=== PATIENT | male | born 1960 | race African-American/Black ===

== ENCOUNTER 2017-07-31 20:05 | Inpatient (IN) | payer SELFPAY ==
[~2017-07-31] VITALS: Ht 180.3 cm; Wt 65.5 kg
[~2017-07-31 20:05] MED LIST: CYCL-36 PO; NAPR550 PO; Z.0.NO CURRENT MEDS
[2017-07-31 20:08] VITALS: BP 145/84; PULSE 83; RESP 20; TEMP 97.6; O2SAT 100
[2017-07-31 20:26] VITALS: BP 151/79; PULSE 84; RESP 24; O2SAT 100
[2017-07-31] MEDS ORDERED: ASPIRIN 81 MG CHEW TAB PO ONE (21:00)
[2017-07-31] MEDS ORDERED: NITROGLYCERIN 0.4 MG SL 25 TABS/BTL SL ONE (21:00)
[2017-07-31] MEDS ORDERED: SODIUM CHLORIDE 0.9% FLUSH 10 ML FLUSH IVF PRN (21:00)
--- NOTE | 2017-07-31 21:03 | PD ---
HPI Chief Complaint: Pain: Acute or Chronic Time Seen by Provider: 20:18 Travel History International Travel<30 days: No Contact w/Intl Traveler<30days: No Traveled to known affect area: No History of Present Illness HPI 57 yo m patient presents to the ED with a cc of chest pain. He states that the pain is located in the center of his chest and does not radiate anywhere, it is occasionally associated with SOB, no vision changes, palpitations, sweats, or nausea (although he did vomit once in the past couple of weeks) He also informed me that it is usually associated with his use of crack cocaine, which he smokes multiple times weekly. He stopped using crack earlier this week due to the fact that it was increasing his chest pain. He has had no loss of appetite or changes in bowel patterns. He does have occasional numbness in his extremities. Pain is moderate, center of his chest, heavy pressure-like, context as above. PFSH Past Medical History Autoimmune Disease: Yes (SICKLE CELL TRAIT) Cardiovascular Problems: Yes (HTN) Hypertension: Yes Tetanus Vaccination: < 5 Years Influenza Vaccination: No Past Surgical History Surgical History: No Previous Surgery Social History Alcohol Use: No Tobacco Use: Yes (5 CIGARS/DAY) Substance Use: No (PT DENIES USE SINCE "LAST WEDNESDAY") Allergies-Medications (Allergen,Severity, Reaction): Coded Allergies: No Known Allergies (Verified Allergy, Mild, 07/31/17) Reported Meds & Prescriptions Reported Meds & Active Scripts Active Review of Systems Except as stated in HPI: all other systems reviewed are Neg Physical Exam Narrative GENERAL: patient is laying in bed in no acute distress, holding his upper abdomen/chest SKIN: Warm and dry. HEAD: Atraumatic. Normocephalic. EYES: Pupils equal and round. No scleral icterus. No injection or drainage. ENT: No nasal bleeding or discharge. Mucous membranes pink and moist. NECK: Trachea midline. No JVD. CARDIOVASCULAR: Regular rate and rhythm. no bruits, murmurs or gallops RESPIRATORY: No accessory muscle use. Clear to auscultation. Breath sounds equal bilaterally. pulses 2+ and equal at Radius. no edema GASTROINTESTINAL: Abdomen soft, tender to palpation in the epigastric region. nondistended. Hepatic and splenic margins not palpable. MUSCULOSKELETAL: Extremities without clubbing, cyanosis, or edema. No obvious deformities. NEUROLOGICAL: Awake and alert. No obvious cranial nerve deficits. Motor grossly within normal limits. Five out of 5 muscle strength in the arms and legs. Normal speech. PSYCHIATRIC: Appropriate mood and affect; insight and judgment normal. Data Data Last Documented VS Vital Signs Date Time Temp Pulse Resp B/P (MAP) Pulse Ox O2 Delivery O2 Flow Rate FiO2 07/31/17 21:12 88 16 145/81 (102) 100 Room Air 07/31/17 20:08 97.6 Orders Orders Electrocardiogram (07/31/17 20:53) Ckmb (Isoenzyme) Profile (07/31/17 20:53) Complete Blood Count With Diff (07/31/17 20:53) Comprehensive Metabolic Panel (07/31/17 20:53) Magnesium (Mg) (07/31/17 20:53) Prothrombin Time / Inr (Pt) (07/31/17 20:53) Act Partial Throm Time (Ptt) (07/31/17 20:53) Troponin I (07/31/17 20:53) Chest, Single Ap (07/31/17 20:53) Ecg Monitoring (07/31/17 20:53) Iv Access Insert/Monitor (07/31/17 20:53) Oximetry (07/31/17 20:53) Oxygen Administration (07/31/17 20:53) Aspirin Chew (Aspirin Chew) (07/31/17 21:00) Sodium Chloride 0.9% Flush (Ns Flush) (07/31/17 21:00) Nitroglycerin Sl (Nitrostat Sl) (07/31/17 21:00) Lipase (07/31/17 20:53) CKMB (07/31/17 20:50) CKMB% (07/31/17 20:50) Oxygen Administration (07/31/17 21:50) Heparin Inj (Heparin Inj) (07/31/17 22:00) Heparin-D5w 25,000 U/250 Ml (Heparin-D5w (07/31/17 22:00) Cbc No Diff, Includes Plts (08/03/17 06:00) Act Partial Throm Time (Ptt) (08/01/17 04:50) Occult Blood (Hemoccult) Stool (07/31/17 21:50) Consult Cardiology (07/31/17 ) Admit Order (Ed Use Only) (07/31/17 ) Labs Laboratory Tests Test 07/31/17 20:50 07/31/17 20:53 Prothrombin Time 10.8 SEC Prothromb Time International Ratio 1.0 RATIO Activated Partial Thromboplast Time 37.6 SEC Blood Urea Nitrogen 11 MG/DL Creatinine 1.17 MG/DL Random Glucose 84 MG/DL Total Protein 7.6 GM/DL Albumin 3.2 GM/DL Calcium Level 8.8 MG/DL Magnesium Level 2.0 MG/DL Alkaline Phosphatase 87 U/L Aspartate Amino Transf (AST/SGOT) 43 U/L Alanine Aminotransferase (ALT/SGPT) 30 U/L Total Bilirubin 0.2 MG/DL Sodium Level 138 MEQ/L Potassium Level 4.0 MEQ/L Chloride Level 99 MEQ/L Carbon Dioxide Level 29.6 MEQ/L Anion Gap 9 MEQ/L Estimat Glomerular Filtration Rate 78 ML/MIN Total Creatine Kinase 237 U/L Creatine Kinase MB 2.2 NG/ML Troponin I 9.27 NG/ML Lipase 166 U/L White Blood Count 9.5 TH/MM3 Red Blood Count 3.22 MIL/MM3 Hemoglobin 9.3 GM/DL Hematocrit 27.7 % Mean Corpuscular Volume 86.0 FL Mean Corpuscular Hemoglobin 28.9 PG Mean Corpuscular Hemoglobin Concent 33.6 % Red Cell Distribution Width 19.2 % Platelet Count 240 TH/MM3 Mean Platelet Volume 9.3 FL Neutrophils (%) (Auto) 69.2 % Lymphocytes (%) (Auto) 18.1 % Monocytes (%) (Auto) 10.6 % Eosinophils (%) (Auto) 1.4 % Basophils (%) (Auto) 0.7 % Neutrophils # (Auto) 6.6 TH/MM3 Lymphocytes # (Auto) 1.7 TH/MM3 Monocytes # (Auto) 1.0 TH/MM3 Eosinophils # (Auto) 0.1 TH/MM3 Basophils # (Auto) 0.1 TH/MM3 CBC Comment DIFF FINAL Differential Comment MDM Medical Decision Making Medical Screen Exam Complete: Yes Emergency Medical Condition: Yes Differential Diagnosis ACS, costochondritis, Pancreatitis, Crack cocaine induced coronary vasospasms. Narrative Course EKG, CXR, CBC. Coags, Cardiac Markers, CMP, Lipase, Nitroglycerine, ASA, Patient roomed in emergency department despite his reproducible pain he is at risk for coronary artery disease and vasospasm cocaine use. Nitroglycerin did relieve his pain, given aspirin. Troponin returned at 9.0. Given his symptoms he was heparinized. Patient was discussed briefly with Dr. Ian Mckeon who is on-call for cardiology who agrees with heparinization and admission to the [facility]. Patient then discussed with Dr. Mistry who will admit the patient. Diagnosis Primary Impression: NSTEMI (non-ST elevated myocardial infarction) Admitting Information Admitting Physician Requests: Admit Scripts No Active Prescriptions or Reported Meds Condition: Balta Das MD Jul 31, 2017 21:03
[2017-07-31 21:12] VITALS: BP 145/81; PULSE 88; RESP 16; O2SAT 100
[2017-07-31 21:28] LABS: APTT (PATIENT) 37.6 SEC (24.3-30.1); PROTHROMBIN TIME - PATIENT 10.8 SEC (9.8-11.6)
[2017-07-31 21:32] LABS: ANION GAP 9 MEQ/L (5-15); AST (GOT) 43 U/L (15-37); BICARBONATE 29.6 MEQ/L (21.0-32.0); BLOOD UREA NITROGEN 11 MG/DL (7-18); CHLORIDE 99 MEQ/L (98-107); GLOMERULAR FILTRATION RATE 78 ML/MIN (>89); SODIUM (NA) 138 MEQ/L (136-145)
[2017-07-31 21:33] LABS: ALT (GPT) 30 U/L (12-78)
[2017-07-31 21:37] LABS: ALKALINE PHOSPHATASE 87 U/L (45-117); CREATINE KINASE 237 U/L (39-308); TOTAL BILIRUBIN ADULT 0.2 MG/DL (0.2-1.0)
[2017-07-31 21:40] LABS: AUTOMATED NEUTROPHIL # 6.6 TH/MM3 (1.8-7.7); BASOPHIL # 0.1 TH/MM3 (0-0.2); BASOPHIL % 0.7 % (0.0-2.0); EOSINOPHIL # 0.1 TH/MM3 (0-0.4); EOSINOPHIL % 1.4 % (0.0-4.0); HEMATOCRIT 27.7 % (39.0-51.0); HEMO FLAGS DIFF FINAL; LYMPH % 18.1 % (9.0-44.0); LYMPHOCYTE # 1.7 TH/MM3 (1.0-4.8); MEAN CORPUSCULAR HEMOGLOBIN 28.9 PG (27.0-34.0); MEAN CORPUSCULAR HGB CONC 33.6 % (32.0-36.0); MONO % 10.6 % (0.0-8.0); NEUT % 69.2 % (16.0-70.0); PLATELET COUNT 240 TH/MM3 (150-450); RED BLOOD COUNT 3.22 MIL/MM3 (4.50-5.90); RED CELL DISTRIBUTION WIDTH 19.2 % (11.6-17.2); WHITE BLOOD COUNT 9.5 TH/MM3 (4.0-11.0)
--- NOTE | 2017-07-31 21:46 | RADRPT ---
EXAM DATE/TIME: 07/31/2017 21:24 [place] COMPARISON: No previous studies available for comparison. INDICATIONS : Chest pain and shortness of breath. MEDICAL HISTORY : Hypertension. SURGICAL HISTORY : None. ENCOUNTER: Initial ACUITY: 1 day PAIN SCORE: 8/10 LOCATION: Bilateral chest FINDINGS: A single view of the chest demonstrates the lungs to be symmetrically aerated without evidence of mas s, infiltrate or effusion. Biapical bulla. The cardiomediastinal contours are unremarkable. Osseou s structures are intact. CONCLUSION: The lungs are clear. Marcio Mejia MD on July 31, 2017 at 21:44 Board Certified Radiologist. This report was verified electronically.
[2017-07-31] MEDS ORDERED: HEPARIN SODIUM - IV 10,000 UNITS/10 ML VIAL IV ONE (22:00)
[2017-07-31 22:02] LABS: CKMB 2.2 NG/ML (0.5-3.6)
[2017-07-31] MEDS: SODIUM CHLOR 0.9% 1000 ML INJ 1,000 ML IV SCH (22:07)
[2017-07-31] MEDS: HEPARIN-D5W 25,000 U/250 ML 250 ML IV PRN (22:11)
[2017-07-31 22:12] VITALS: PULSE 87; RESP 16; O2SAT 100
[2017-07-31 22:13] VITALS: BP 132/77; PULSE 82; RESP 16; O2SAT 100
[2017-07-31] MEDS ORDERED: ONDANSETRON HCL 4 MG/2 ML VIAL IVP PRN (22:15)
[2017-07-31] MEDS ORDERED: SODIUM CHLORIDE 0.9% FLUSH 10 ML FLUSH IV FLUSH PRN (22:15)
[2017-07-31] MEDS ORDERED: BISACODYL 10 MG SUPP RECTAL PRN (22:15)
[2017-07-31] MEDS ORDERED: ACETAMINOPHEN 325 MG TAB PO PRN (22:15)
[2017-07-31] MEDS ORDERED: SENNOSIDES 8.6 MG TAB PO PRN (22:15)
[2017-07-31] MEDS ORDERED: LORazepam 2 MG/ML VIAL IV PUSH PRN (22:15)
[2017-07-31] MEDS ORDERED: MAGNESIUM HYDROXIDE SUSP 30 ML CUP PO PRN (22:15)
[2017-07-31] MEDS ORDERED: MORPHINE SULFATE 4 MG/ML INJ IV PUSH PRN (22:15)
[2017-07-31] MEDS ORDERED: LACTULOSE SYRUP 20 GM/30 ML CUP PO PRN (22:15)
[2017-07-31] MEDS ORDERED: ACETAMINOPHEN/HYDROcodone 325 MG/5 MG TAB PO PRN (22:15)
--- NOTE | 2017-07-31 22:41 | HHI.HP ---
HPI Service [facility] Primary Care Physician No Primary Care Physician Admission Diagnosis NSTEMI Diagnoses: (1) NSTEMI (non-ST elevated myocardial infarction) Diagnosis: Principal (2) Cocaine abuse Diagnosis: Principal (3) Dehydration Diagnosis: Principal (4) Anemia Diagnosis: Principal (5) Tobacco abuse Diagnosis: Principal Travel History International Travel<30 Days: No Contact w/Intl Traveler <30 Da: No Traveled to Known Affected Are: No History of Present Illness This is a 57-year-old male with PMH of HTN, Tobacco Abuse and Cocaine Abuse who presented to the ER with complaints of chest pain and SOB x1 wk. States symptoms started after smoking Crack Cocaine a week ago, now pain progressively worse. Denies Cocaine since last Wednesday due to c/o chest pain. No cough, fever or chills. On arrival, BP 145/84, HR 83, O2 sat 100% on RA, Afebrile. Hemoglobin 9.3, no previous labs for comparison. GFR 78. Troponin 9.27. EKG with no acute changes. INR 1.0. CXR with no acute findings. Started on Heparin gtt in ER. Dr. Mckeon consulted by ER physician. Pt currently chest pain free. Review of Systems Except as stated in HPI: all other systems reviewed are Neg ROS: 14 point review of systems otherwise negative. Past Family Social History Past Medical History PMH: HTN, Tobacco Abuse and Cocaine Abuse Past Surgical History PAST SURGICAL HISTORY: None Allergies: Coded Allergies: No Known Allergies (Verified Allergy, Mild, 07/31/17) Family History PAST FAMILY HISTORY: Reviewed. No h/o DM or CAD Social History PAST SOCIAL HISTORY: Negative for alcohol. Smokes 5 cigars/day. +Crack Cocaine. Physical Exam Vital Signs Vital Signs Date Time Temp Pulse Resp B/P (MAP) Pulse Ox O2 Delivery O2 Flow Rate FiO2 07/31/17 22:13 82 16 132/77 (95) 100 Nasal Cannula 2.00 07/31/17 22:12 87 16 100 Nasal Cannula 2.00 07/31/17 22:12 100 Nasal Cannula 2.00 07/31/17 21:12 88 16 145/81 (102) 100 Room Air 07/31/17 21:03 100 Room Air 07/31/17 20:26 84 24 151/79 (103) 100 Room Air 07/31/17 20:26 26 07/31/17 20:08 97.6 83 20 145/84 (104) 100 Room Air Physical Exam PE: GENERAL: Middle-aged black male in no acute distress. HEENT: PERRLA, EOMI. No scleral icterus or conjunctival pallor. No lid lag or facial droop. CARDIOVASCULAR: Regular rate and rhythm. No obvious murmurs to auscultation. No chest tenderness to palpation. RESPIRATORY: No obvious rhonchi or wheezing. Clear to auscultation. Breath sounds equal bilaterally. GASTROINTESTINAL: Abdomen soft, non-tender, nondistended. BS normal. MUSCULOSKELETAL: Extremities without clubbing, cyanosis, or edema. No obvious deformities. NEUROLOGICAL: Awake, alert and oriented x4. No focal neurologic deficits. Moving both upper and lower extremities spontaneously. Laboratory Laboratory Tests Test 07/31/17 20:50 07/31/17 20:53 Prothrombin Time 10.8 Prothromb Time International Ratio 1.0 Activated Partial Thromboplast Time 37.6 Blood Urea Nitrogen 11 Creatinine 1.17 Random Glucose 84 Total Protein 7.6 Albumin 3.2 Calcium Level 8.8 Magnesium Level 2.0 Alkaline Phosphatase 87 Aspartate Amino Transf (AST/SGOT) 43 Alanine Aminotransferase (ALT/SGPT) 30 Total Bilirubin 0.2 Sodium Level 138 Potassium Level 4.0 Chloride Level 99 Carbon Dioxide Level 29.6 Anion Gap 9 Estimat Glomerular Filtration Rate 78 Total Creatine Kinase 237 Creatine Kinase MB 2.2 Troponin I 9.27 Lipase 166 White Blood Count 9.5 Red Blood Count 3.22 Hemoglobin 9.3 Hematocrit 27.7 Mean Corpuscular Volume 86.0 Mean Corpuscular Hemoglobin 28.9 Mean Corpuscular Hemoglobin Concent 33.6 Red Cell Distribution Width 19.2 Platelet Count 240 Mean Platelet Volume 9.3 Neutrophils (%) (Auto) 69.2 Lymphocytes (%) (Auto) 18.1 Monocytes (%) (Auto) 10.6 Eosinophils (%) (Auto) 1.4 Basophils (%) (Auto) 0.7 Neutrophils # (Auto) 6.6 Lymphocytes # (Auto) 1.7 Monocytes # (Auto) 1.0 Eosinophils # (Auto) 0.1 Basophils # (Auto) 0.1 CBC Comment DIFF FINAL Differential Comment Result Diagram: 07/31/17205207/31/172049 Caprini VTE Risk Assessment Caprini VTE Risk Assessment: Mod/High Risk (score >= 2) Caprini Risk Assessment Model Point Value = 1 Point Value = 2 Point Value = 3 Point Value = 5 Age 41-60 Minor surgery BMI > 25 kg/m2 Swollen legs Varicose veins or History of unexplained or recurrent spontaneous Oral contraceptives or hormone replacement Sepsis (< 1 month) Serious lung disease, including pneumonia (< 1 month) Abnormal pulmonary function Acute myocardial infarction Congestive heart failure (< 1 month) History of inflammatory bowel disease Medical patient at bed rest Age 61-74 Arthroscopic surgery Major open surgery (> 45 min) Laparoscopic surgery (> 45 min) Malignancy Confined to bed (> 72 hours) Immobilizing plaster cast Central venous access Age >= 75 History of VTE Family history of VTE Factor V Leiden Prothrombin [id number] Lupus anticoagulant Anticardiolipin antibodies Elevated serum homocysteine Heparin-induced thrombocytopenia Other congenital or acquired thrombophilia Stroke (< 1 month) Elective arthroplasty Hip, pelvis, or leg fracture Acute spinal cord injury (< 1 month) Prophylaxis Regimen Total Risk Factor Score Risk Level Prophylaxis Regimen 0-1 Low Early ambulation 2 Moderate Order ONE of the following: *Sequential Compression Device (SCD) *Heparin 5000 units SQ BID 3-4 Higher Order ONE of the following medications: *Heparin 5000 units SQ TID *Enoxaparin/Lovenox 40 mg SQ daily (WT < 150 kg, CrCl > 30 mL/min) *Enoxaparin/Lovenox 30 mg SQ daily (WT < 150 kg, CrCl > 10-29 mL/min) *Enoxaparin/Lovenox 30 mg SQ BID (WT < 150 kg, CrCl > 30 mL/min) AND/OR *Sequential Compression Device (SCD) 5 or more Highest Order ONE of the following medications: *Heparin 5000 units SQ TID (Preferred with Epidurals) *Enoxaparin/Lovenox 40 mg SQ daily (WT < 150 kg, CrCl > 30 mL/min) *Enoxaparin/Lovenox 30 mg SQ daily (WT < 150 kg, CrCl > 10-29 mL/min) *Enoxaparin/Lovenox 30 mg SQ BID (WT < 150 kg, CrCl > 30 mL/min) AND *Sequential Compression Device (SCD) Assessment and Plan Problem List: (1) NSTEMI (non-ST elevated myocardial infarction) ICD Code: I21.4 - Non-ST elevation (NSTEMI) myocardial infarction (2) Cocaine abuse ICD Code: F14.10 - Cocaine abuse, uncomplicated (3) Dehydration ICD Code: E86.0 - Dehydration (4) Anemia ICD Code: D64.9 - Anemia, unspecified (5) Tobacco abuse ICD Code: Z72.0 - Tobacco use Assessment and Plan A/P: 1. NSTEMI: c/o acute onset of chest pain after smoking Crack Cocaine 1wk ago, chest pain progressively worse. Trop 9.27, EKG w/ no acute ischemia. Started on Heparin gtt in ER, Dr. Mckeon consulted by ER physician. Currently chest pain free. NPO after midnight, IVF, check serial enzymes, Ativan/Morphine/NTG prn for Chest Pain. ASA. No B-latrice in light of cocaine. 2. Cocaine Abuse: Pt counselled. Ativan prn 3. Dehydration: GFR 78, BUN/Creat normal. Check U/a. IVF for hydration, repeat labs in am. 4. Anemia: Hgb 9.3, no previous labs for comparison. Sickle Cell Trait per history. No active bleeding. Will monitor, repeat labs in am. 5. Tobacco Abuse: Pt counselled. Ativan prn. No NicoDerm to avoid vasoconstriction. 6. DVT Prophylaxis: Heparin gtt 7. Social work for d/c planning as needed. 8. Case discussed w/ ER physician at length. Physician Certification 2 Midnight Certification Type: Admission for Inpatient Services Order for Inpatient Services The services are ordered in accordance with Medicare regulations or non- Medicare payer requirements, as applicable. In the case of services not specified as inpatient-only, they are appropriately provided as inpatient services in accordance with the 2-midnight benchmark. Estimated LOS (days): 2 days is the estimated time the patient will need to remain in the hospital, assuming treatment plan goals are met and no additional complications. Post-Hospital Plan: Not yet determined Jumana Mistry MD Jul 31, 2017 22:41
[2017-07-31] MEDS ORDERED: NITROGLYCERIN 2% OINT 1 GM PACKET TOPICAL PRN (22:45)
[2017-08-01] VITALS (19 sets, daily range): BP systolic 116–134; BP diastolic 65–77; PULSE 61–77; RESP 18–26; TEMP 98–99.8; O2SAT 100
[2017-08-01 01:17] LABS: BLOOD, URINE NEG (NEG); COMMENT (UR) CULT NOT INDICATED; CULTURE IF INDICATED CULT NOT INDICATED; GLUCOSE,URINE NEG (NEG); KETONE, URINE NEG (NEG); MUCUS URINE FEW /lpf (OCC); NITRITE,URINE NEG (NEG); URINE COLOR YELLOW (YELLW/STRAW)
[2017-08-01 04:40] LABS: APTT (PATIENT) 69.5 SEC (24.3-30.1)
[2017-08-01] MEDS: SODIUM CHLOR 0.9% 1000 ML INJ 1,000 ML IV SCH ×3 (08:07→20:00)
--- NOTE | 2017-08-01 08:26 | HHI.PR ---
Subjective Remarks f/u; NSTEMI in no acute distress. no chest pain or sob today. Objective Vitals Vital Signs Date Time Temp Pulse Resp B/P (MAP) Pulse Ox O2 Delivery O2 Flow Rate FiO2 08/01/17 08:01 100 Nasal Cannula 2.00 08/01/17 06:00 64 25 128/75 (92) 100 08/01/17 06:00 64 08/01/17 05:00 63 21 124/74 (91) 100 08/01/17 04:00 99.3 70 26 132/77 (95) 100 08/01/17 04:00 70 08/01/17 03:00 66 18 134/73 (93) 100 08/01/17 02:23 100 Nasal Cannula 2.00 08/01/17 02:00 71 08/01/17 02:00 71 23 133/65 (87) 100 08/01/17 00:16 74 08/01/17 00:00 99.8 77 18 132/77 (95) 100 07/31/17 22:13 82 16 132/77 (95) 100 Nasal Cannula 2.00 07/31/17 22:12 87 16 100 Nasal Cannula 2.00 07/31/17 22:12 100 Nasal Cannula 2.00 07/31/17 21:12 88 16 145/81 (102) 100 Room Air 07/31/17 21:03 100 Room Air 07/31/17 20:26 84 24 151/79 (103) 100 Room Air 07/31/17 20:26 26 07/31/17 20:08 97.6 83 20 145/84 (104) 100 Room Air I/O 07/31/17 07/31/17 07/31/17 08/01/17 08/01/17 08/01/17 07:00 15:00 23:00 07:00 15:00 23:00 Intake Total 579 ml Output Total 600 ml Balance -21 ml Intake Oral 0 ml IV Total 579 ml Output Urine Total 600 ml # Bowel Movements 0 Result Diagram: 07/31/17205207/31/172049 Imaging Last Impressions Chest X-Ray 07/31/172052 Signed Impressions: Service Date/Time: Monday, July 31, 2017 21:24 - CONCLUSION: The lungs are clear. Marcio Mejia MD Objective Remarks GENERAL: This is a well-nourished, well-developed patient, in no apparent distress. CARDIOVASCULAR: Regular rate and regular rhythm without murmurs, gallops, or rubs. RESPIRATORY: Clear to auscultation. Breath sounds equal bilaterally. No wheezes , rales, or rhonchi. GASTROINTESTINAL: Abdomen soft, non-tender, nondistended. Normal, active bowel sounds MUSCULOSKELETAL: Extremities without clubbing, cyanosis, or edema. NEURO: Alert & Oriented x4 to person, place, time, situation. Moves all ext x4 Medications and IVs Current Medications Aspirin (Aspirin Chew) 324 mg ONCE ONCE PO Last administered on 07/31/17 21: 11; Start 07/31/17 at 21:00; Stop 07/31/17 at 21:01; Status DC Sodium Chloride (NS Flush) 2 ml UNSCH PRN IVF FLUSH AFTER USING IV ACCESS; Start 07/31/17 at 21:00; Stop 07/31/17 at 22:16; Status DC Nitroglycerin (Nitrostat Sl) 0.4 mg ONCE ONCE SL Last administered on 21:12; Start 07/31/17 at 21:00; Stop 07/31/17 at 21:01; Status DC Heparin Sodium (Porcine) (Heparin Inj) 3,500 units ONCE ONCE IV Last administered on 07/31/17 22:08; Start 07/31/17 at 22:00; Stop 07/31/17 at 22 :02; Status DC Heparin Sodium/ Dextrose 250 ml @ 8 mls/hr TITRATE PRN IV Coagulation Management Last administered on 07/31/17 22:11; Start 07/31/17 at 22:00 Lorazepam (Ativan Inj) 1 mg Q2H PRN IV PUSH CHEST PAIN ; Start 07/31/17 at 22: 15 Sodium Chloride 1,000 ml @ 100 mls/hr Q10H IV Last administered on 07/31/17 22:07; Start 07/31/17 at 22:07 Sodium Chloride (NS Flush) 2 ml UNSCH PRN IV FLUSH FLUSH AFTER USING IV ACCESS ; Start 07/31/17 at 22:15 Sodium Chloride (NS Flush) 2 ml BID IV FLUSH ; Start 08/01/17 at 09:00 Ondansetron HCl (Zofran Inj) 4 mg Q6H PRN IVP NAUSEA OR VOMITING; Start at 22:15 Acetaminophen (Tylenol) 650 mg Q6H PRN PO FEVER/PAIN SCALE 1 TO 2; Start 07/31 at 22:15 Acetaminophen/ Hydrocodone Bitart ([place] 5-325 Mg) 1 tab Q4H PRN PO PAIN SCALE 3 TO 5; Start 07/31/17 at 22:15 Morphine Sulfate (Morphine Inj) 4 mg Q3H PRN IV PUSH Pain 6-10; Start at 22:15 Senna/Docusate Sodium (Lora-Colace) 1 tab BID PO ; Start 08/01/17 at 09:00 Magnesium Hydroxide (Milk Of Magnesia Liq) 30 ml Q12H PRN PO Mild constipation ; Start 07/31/17 at 22:15 Sennosides (Senokot) 17.2 mg Q12H PRN PO Moderate constipation; Start at 22:15 Bisacodyl (Dulcolax Supp) 10 mg DAILY PRN RECTAL SEVERE CONSITIPATION/ IF NPO; Start 07/31/17 at 22:15 Lactulose (Lactulose Liq) 30 ml DAILY PRN PO SEVERE CONSITIPATION/IF PO; Start 07/31/17 at 22:15 Nitroglycerin (Nitroglycerin 2% Oint) 0.5 inch Q6HR PRN TOPICAL CHEST PAIN; Start 07/31/17 at 22:45 A/P Problem List: (1) NSTEMI (non-ST elevated myocardial infarction) ICD Code: I21.4 - Non-ST elevation (NSTEMI) myocardial infarction (2) Cocaine abuse ICD Code: F14.10 - Cocaine abuse, uncomplicated (3) Dehydration ICD Code: E86.0 - Dehydration (4) Anemia ICD Code: D64.9 - Anemia, unspecified (5) Tobacco abuse ICD Code: Z72.0 - Tobacco use Assessment and Plan A/P 1. NSTEMI: c/o acute onset of chest pain after smoking Crack Cocaine 1wk ago, chest pain progressively worse. Trop 9.27, EKG w/ no acute ischemia. Started on Heparin gtt in ER, Dr. Mckeon consulted by ER physician. Currently chest pain free. NPO for now, IVF. Ativan/Morphine/NTG prn for Chest Pain. ASA. No B-latrice in light of cocaine. 2. Cocaine Abuse: Pt counselled. Ativan prn 3. Anemia: Hgb 9.3, no previous labs for comparison. Sickle Cell Trait per history. No active bleeding. Will monitor. 4. Tobacco Abuse: Pt counselled. Ativan prn. No NicoDerm to avoid vasoconstriction. 5. DVT Prophylaxis: Heparin gtt Discharge Planning awaiting cardiology recommendations. Kristian Melton MD Aug 01, 2017 08:26
[2017-08-01 11:41] LABS: AUTOMATED NEUTROPHIL # 4.1 TH/MM3 (1.8-7.7); BASOPHIL # 0.1 TH/MM3 (0-0.2); BASOPHIL % 0.8 % (0.0-2.0); EOSINOPHIL # 0.2 TH/MM3 (0-0.4); EOSINOPHIL % 2.4 % (0.0-4.0); HEMATOCRIT 24.9 % (39.0-51.0); HEMO FLAGS DIFF FINAL; LYMPH % 24.1 % (9.0-44.0); LYMPHOCYTE # 1.6 TH/MM3 (1.0-4.8); MEAN CELL VOLUME 86.4 FL (80.0-100.0); MEAN CORPUSCULAR HEMOGLOBIN 27.8 PG (27.0-34.0); MEAN CORPUSCULAR HGB CONC 32.2 % (32.0-36.0); MONO % 11.9 % (0.0-8.0); NEUT % 60.8 % (16.0-70.0); PLATELET COUNT 252 TH/MM3 (150-450); RED BLOOD COUNT 2.88 MIL/MM3 (4.50-5.90); WHITE BLOOD COUNT 6.7 TH/MM3 (4.0-11.0)
[2017-08-01 12:04] LABS: AST (GOT) 28 U/L (15-37); BLOOD UREA NITROGEN 11 MG/DL (7-18); CHLORIDE 105 MEQ/L (98-107); GLOMERULAR FILTRATION RATE 108 ML/MIN (>89); POTASSIUM 3.9 MEQ/L (3.5-5.1); SODIUM (NA) 140 MEQ/L (136-145)
[2017-08-01 12:05] LABS: ALT (GPT) 24 U/L (12-78)
[2017-08-01 12:08] LABS: ALKALINE PHOSPHATASE 76 U/L (45-117); ANION GAP 8 MEQ/L (5-15); BICARBONATE 27.3 MEQ/L (21.0-32.0); TOTAL BILIRUBIN ADULT 0.2 MG/DL (0.2-1.0)
--- NOTE | 2017-08-01 17:55 | MB ---
cc: IAN STEELE DO DATE OF CONSULTATION: 08/01/2017. REASON FOR CONSULTATION: NSTEMI. HISTORY OF PRESENT ILLNESS: Oni Machado is a 57-year-old male who presented to the [facility] Emergency Room on July 31, 2017 due to chest pain. He states that he smoked crack cocaine around a week ago and started having some chest pain. The chest pain has been off and on since then and has gotten so worse that he needed to come to the emergency room. His sister tried to get him to come to the emergency room weeks ago when all this started. Upon arrival he was found to have a troponin of 9 and he was started on a heparin drip. In seeing him, he is currently chest pain-free and without shortness of breath. PAST MEDICAL HISTORY: 1. Hypertension 2. Tobacco abuse. 3. Cocaine abuse. PAST SURGICAL HISTORY: Denies. ALLERGIES: NO KNOWN DRUG ALLERGIES. MEDICATIONS: Denies. FAMILY HISTORY: Denies premature coronary artery disease or sudden cardiac within the family. SOCIAL HISTORY: Denies alcohol. He smokes cigars daily. Positive for crack cocaine. In discussing this with him he states that he has not smoked crack cocaine since the time one week ago. States that he has not smoked crack cocaine before this. REVIEW OF SYSTEMS Fourteen systems were reviewed including osteopathic with pertinent positives and negatives as above; otherwise negative. PHYSICAL EXAMINATION: VITAL SIGNS: Temperature 98.8, heart rate 69, blood pressure 132/71, respirations 20, pulse ox 100% on 2 liters. GENERAL: In general the patient appears well and in no acute distress, alert awake and oriented x3. HEAD, EYES, EARS, NOSE, THROAT: Extraocular muscles intact. Mucous membranes moist. NECK: Supple. No JVD at 45 degrees. No carotid bruits heard bilaterally. Carotid upstroke is brisk in nature. HEART: Regular rate and rhythm. Positive first and second heart sounds with no noted murmurs, gallops or rubs. LUNGS: Clear to auscultation bilaterally. No wheezes, rales or rhonchi. ABDOMEN: The abdomen is soft, nontender and nondistended. No organomegaly noted. EXTREMITIES: No clubbing, cyanosis or edema. Femoral and distal pulses are intact bilaterally. NEUROLOGIC: No focal deficits. SKIN: Warm, dry and intact. OSTEOPATHIC: Osteopathically, no kyphoscoliosis, lordosis or paraspinal tender points. LABORATORY FINDINGS: Hemoglobin 9.3, hematocrit 27.7, platelets 240. Potassium 4.0, BUN 11, creatinine 1.17. Troponin 9.27 decreasing to 7.32. Electrocardiogram (July 31, 2017 at 2028): Sinus rhythm, no acute S-T-T wave changes. IMPRESSION: 1. NSTEMI. 2. Crack cocaine abuse. 3. Tobacco abuse. 4. Hypertension 5. Normocytic anemia. RECOMMENDATIONS: 1. Mr. Machado has had chest pain since smoking crack cocaine. He had an elevated troponin of 9. As of right now we will plan on a cardiac catheterization in the morning to further evaluate his coronary anatomy. 2. I spoke to him about his crack cocaine abuse. He is states that he has not smoked it before and this was the first time. I discussed this extensively with his sister who states that in general he has not abused drugs in the past as far she knows. He has fallen on hard times recently, and that lead him to try crack cocaine. 3. My overall concern is that he has been anemic and we will plan on checking his hemoglobin in the morning and if significant drop, may need to hold off on catheterization so this can be evaluated. 4. We will continue him on a heparin drip at this time as he is hemodynamically stable and does not appear to have active bleeding. 5. We will check a 2-D echo to look at his overall left ventricular function, cardiac structure and possible valvulopathies. 6. He will not be placed on a beta latrice at this time and probably not at discharge due to his crack cocaine use. Thank you for allowing me to see Oni Machado. If there are any questions, please do not hesitate to call. Ian Steele DO VGP/SEBASTIAN /5:12 PM /5:48 PM MTDD
[2017-08-01] MEDS: SODIUM CHLORIDE 0.9% FLUSH 10 ML FLUSH IV FLUSH SCH (21:00)
[2017-08-01] MEDS: DOCUSATE SODIUM 50 MG/SENNA 8.6 MG TAB PO SCH (21:00)
[2017-08-02] VITALS (18 sets, daily range): BP systolic 108–148; BP diastolic 54–83; PULSE 61–80; RESP 17–25; TEMP 97.8–99.1; O2SAT 98–100
--- NOTE | 2017-08-02 01:00 | EKG ---
Date Performed: 07/31/2017 Time Performed: 20:29:05 PTAGE: 57 years EKG: Sinus rhythm NO PREVIOUS TRACING DOCTOR: Ian Mckeon Interpretating Date/Time 08/02/2017 00:58:41
[2017-08-02] MEDS: SODIUM CHLOR 0.9% 1000 ML INJ 1,000 ML IV SCH ×2 (04:07→14:03)
[2017-08-02] MEDS: HEPARIN-D5W 25,000 U/250 ML 250 ML IV PRN (04:23)
[2017-08-02 06:48] LABS: AUTOMATED NEUTROPHIL # 3.6 TH/MM3 (1.8-7.7); BASOPHIL % 0.2 % (0.0-2.0); EOSINOPHIL # 0.1 TH/MM3 (0-0.4); EOSINOPHIL % 2.2 % (0.0-4.0); HEMATOCRIT 25.7 % (39.0-51.0); HEMO FLAGS DIFF FINAL; LYMPH % 29.8 % (9.0-44.0); LYMPHOCYTE # 1.9 TH/MM3 (1.0-4.8); MEAN CELL VOLUME 87.3 FL (80.0-100.0); MEAN CORPUSCULAR HEMOGLOBIN 28.2 PG (27.0-34.0); MEAN CORPUSCULAR HGB CONC 32.3 % (32.0-36.0); MONO % 10.2 % (0.0-8.0); NEUT % 57.6 % (16.0-70.0); PLATELET COUNT 256 TH/MM3 (150-450); RED BLOOD COUNT 2.94 MIL/MM3 (4.50-5.90); RED CELL DISTRIBUTION WIDTH 19.5 % (11.6-17.2); WHITE BLOOD COUNT 6.2 TH/MM3 (4.0-11.0)
[2017-08-02 06:50] LABS: APTT (PATIENT) 55.1 SEC (24.3-30.1)
[2017-08-02 06:54] LABS: BICARBONATE 27.2 MEQ/L (21.0-32.0); POTASSIUM 4.3 MEQ/L (3.5-5.1)
--- NOTE | 2017-08-02 08:30 | HHI.PR ---
Subjective Remarks in no acute distress. no chest pain or sob. d/w the RN and no acute issues over night. Objective Vitals Vital Signs Date Time Temp Pulse Resp B/P (MAP) Pulse Ox O2 Delivery O2 Flow Rate FiO2 08/02/17 06:00 66 08/02/17 04:00 67 08/02/17 04:00 98.0 67 24 148/78 (101) 100 08/02/17 02:00 69 08/02/17 00:00 62 08/02/17 00:00 98.4 77 25 135/78 (97) 100 08/01/17 22:00 72 08/01/17 20:00 69 08/01/17 19:16 100 Nasal Cannula 2.00 08/01/17 18:19 98.0 71 22 131/72 (91) 100 08/01/17 18:00 62 08/01/17 16:00 62 08/01/17 16:00 98.0 71 22 130/72 (91) 100 08/01/17 14:00 62 08/01/17 12:00 98.8 61 22 132/71 (91) 100 08/01/17 12:00 69 08/01/17 10:00 69 I/O 08/01/17 08/01/17 08/01/17 08/02/17 08/02/17 08/02/17 07:00 15:00 23:00 07:00 15:00 23:00 Intake Total 579 ml 487 ml 480 ml Output Total 600 ml 800 ml 1600 ml Balance -21 ml 487 ml -320 ml -1600 ml Intake Oral 0 ml 480 ml IV Total 579 ml 487 ml Output Urine Total 600 ml 800 ml 1600 ml # Bowel Movements 0 0 Result Diagram: 08/02/1761308/02/17613 Imaging Last Impressions Chest X-Ray 07/31/172052 Signed Impressions: Service Date/Time: Monday, July 31, 2017 21:24 - CONCLUSION: The lungs are clear. Marcio Mejia MD Objective Remarks GENERAL: This is a well-nourished, well-developed patient, in no apparent distress. CARDIOVASCULAR: Regular rate and regular rhythm without murmurs, gallops, or rubs. RESPIRATORY: Clear to auscultation. Breath sounds equal bilaterally. No wheezes , rales, or rhonchi. GASTROINTESTINAL: Abdomen soft, non-tender, nondistended. Normal, active bowel sounds MUSCULOSKELETAL: Extremities without clubbing, cyanosis, or edema. NEURO: Alert & Oriented x4 to person, place, time, situation. Moves all ext x4 Medications and IVs Current Medications Aspirin (Aspirin Chew) 324 mg ONCE ONCE PO Last administered on 07/31/17 21: 11; Start 07/31/17 at 21:00; Stop 07/31/17 at 21:01; Status DC Sodium Chloride (NS Flush) 2 ml UNSCH PRN IVF FLUSH AFTER USING IV ACCESS; Start 07/31/17 at 21:00; Stop 07/31/17 at 22:16; Status DC Nitroglycerin (Nitrostat Sl) 0.4 mg ONCE ONCE SL Last administered on 21:12; Start 07/31/17 at 21:00; Stop 07/31/17 at 21:01; Status DC Heparin Sodium (Porcine) (Heparin Inj) 3,500 units ONCE ONCE IV Last administered on 07/31/17 22:08; Start 07/31/17 at 22:00; Stop 07/31/17 at 22 :02; Status DC Heparin Sodium/ Dextrose 250 ml @ 8 mls/hr TITRATE PRN IV Coagulation Management Last administered on 08/02/17 04:23; Start 07/31/17 at 22:00 Lorazepam (Ativan Inj) 1 mg Q2H PRN IV PUSH CHEST PAIN ; Start 07/31/17 at 22: 15 Sodium Chloride 1,000 ml @ 100 mls/hr Q10H IV Last administered on 08/02/17 04:07; Start 07/31/17 at 22:07 Sodium Chloride (NS Flush) 2 ml UNSCH PRN IV FLUSH FLUSH AFTER USING IV ACCESS ; Start 07/31/17 at 22:15 Sodium Chloride (NS Flush) 2 ml BID IV FLUSH Last administered on 08/01/17 21 :00; Start 08/01/17 at 09:00 Ondansetron HCl (Zofran Inj) 4 mg Q6H PRN IVP NAUSEA OR VOMITING; Start at 22:15 Acetaminophen (Tylenol) 650 mg Q6H PRN PO FEVER/PAIN SCALE 1 TO 2; Start 07/31 at 22:15 Acetaminophen/ Hydrocodone Bitart ([place] 5-325 Mg) 1 tab Q4H PRN PO PAIN SCALE 3 TO 5; Start 07/31/17 at 22:15 Morphine Sulfate (Morphine Inj) 4 mg Q3H PRN IV PUSH Pain 6-10; Start at 22:15 Senna/Docusate Sodium (Lora-Colace) 1 tab BID PO Last administered on t 21:00; Start 08/01/17 at 09:00 Magnesium Hydroxide (Milk Of Magnesia Liq) 30 ml Q12H PRN PO Mild constipation ; Start 07/31/17 at 22:15 Sennosides (Senokot) 17.2 mg Q12H PRN PO Moderate constipation; Start at 22:15 Bisacodyl (Dulcolax Supp) 10 mg DAILY PRN RECTAL SEVERE CONSITIPATION/ IF NPO; Start 07/31/17 at 22:15 Lactulose (Lactulose Liq) 30 ml DAILY PRN PO SEVERE CONSITIPATION/IF PO; Start 07/31/17 at 22:15 Nitroglycerin (Nitroglycerin 2% Oint) 0.5 inch Q6HR PRN TOPICAL CHEST PAIN; Start 07/31/17 at 22:45 A/P Problem List: (1) NSTEMI (non-ST elevated myocardial infarction) ICD Code: I21.4 - Non-ST elevation (NSTEMI) myocardial infarction (2) Cocaine abuse ICD Code: F14.10 - Cocaine abuse, uncomplicated (3) Dehydration ICD Code: E86.0 - Dehydration (4) Anemia ICD Code: D64.9 - Anemia, unspecified (5) Tobacco abuse ICD Code: Z72.0 - Tobacco use Assessment and Plan A/P 1. NSTEMI: c/o acute onset of chest pain after smoking Crack Cocaine 1wk ago, chest pain progressively worse. Trop 9.27, EKG w/ no acute ischemia. cardiology consulted and plan for possible cardiac cath toady. Ativan/Morphine/NTG prn for Chest Pain. ASA. No B-latrice in light of cocaine. 2. Cocaine Abuse: Pt counselled. Ativan prn 3. Anemia: no previous labs for comparison. Sickle Cell Trait per history. No active bleeding and denies any history of melena. check iron panel/ ferritin and stool for blood- monitor H/H. 4. Tobacco Abuse: Pt counselled. Ativan prn. No NicoDerm to avoid vasoconstriction. 5. DVT Prophylaxis: Heparin gtt Discharge Planning awaiting cardiology recommendations. Kristian Melton MD Aug 02, 2017 08:30
[2017-08-02] MEDS: DOCUSATE SODIUM 50 MG/SENNA 8.6 MG TAB PO SCH ×2 (09:50→21:26)
[2017-08-02] MEDS: SODIUM CHLORIDE 0.9% FLUSH 10 ML FLUSH IV FLUSH SCH ×2 (09:50→21:00)
[2017-08-02 10:11] LABS: TRANSFERRIN IRON PROFILE 217 MG/DL (200-360)
[2017-08-02 10:14] LABS: FERRITIN 67 NG/ML (26-388)
[2017-08-02] MEDS ORDERED: MIDAZOLAM HCL 2 MG/2 ML VIAL ONE (12:06)
[2017-08-02] MEDS ORDERED: HEPARIN SODIUM - IV 10,000 UNITS/10 ML VIAL ONE (12:06)
[2017-08-02] MEDS ORDERED: VERAPAMIL HCL 5 MG/2 ML VIAL ONE (12:06)
[2017-08-02] MEDS ORDERED: HEPARIN-NS/PF INJ 500 ML ONE (12:06)
[2017-08-02] MEDS ORDERED: NITROGLYCERIN INJ 5 ML ONE (12:07)
[2017-08-02] MEDS ORDERED: ASPIRIN 325 MG TAB ONE (13:07)
[2017-08-02] MEDS ORDERED: CLOPIDOGREL 300 MG TAB ONE (13:07)
[2017-08-02] MEDS ORDERED: ONDANSETRON HCL 4 MG/2 ML VIAL ONE (13:25)
[2017-08-02] MEDS ORDERED: SODIUM CHLOR 0.9% 1000 ML INJ 1,000 ML IV SCH (13:47)
--- NOTE | 2017-08-02 13:49 | CATHPROC ---
[facility] HIS Report Study Information Study Number Admission Scheduled Start Study Start [id number] Jul 31 2017 10:10PM 08/01/2017 Aug 02 2017 11:48AM [place] [facility] Cardiac Catheterization Admit Source Facility Department Emergency department [facility] - Electronic Warfare Officer Physician and Clinical Staff Initial MD Mckeon, Ian Buckle Coverer Claire Johnson,JUANITA Recorder Enma Cameron,RT(R) Scrub Camryn Jamison,RT(R) (BS) Procedures Performed Procedure Location (Site) Vessel Name Coronary Angiograms RCA Right Coronary L Heart Cath PTCA OM2 Mid CIRC Stent OM2 Mid CIRC Wire insertion Fem Art (right) Femoral Art Wire insertion Radial (right) Radial Art. Equipment Time Call Centre Supervisor Description Size Mfg Part Number Used/Scraped WIRE, BALANCE MIDDLEWEIGHT [id number] 12:45 [employer] 190CM Used 190CM (DAYO) *[id number] TRANSDUCER, TRUWAVE [id number] 11:49 [employer]ES [employer]BBS * Used W/STOCKCOCK *[id number] [id number] *[id number] 534-521T *[id number] 11:49 [employer] PACK, CCL CUSTOM * Used *[id number] 11:49 [employer] SUPPORT, ARTERIAL ADULT 14482 *[id number] Used [id number] 12:53 [employer] BALLOON, 2.0 X 12MM EUPHORA 12MM Used *[id number] BALLOON, 2.25 X 12MM NC [id number] 13:13 [employer] 12MM Used EUPHORA *[id number] 13:05 [employer] STENT, 2.25 18 INTEGRITY 2.25 18 Used *[id number] 12:44 [employer]/AVE EBU 3.5 Z2 GUIDE CATHETER FR 6 Used *[id number] 12:50 [employer]/AVE EBU 4.0 Z2 GUIDE CATHETER FR 6 Used *[id number] 13:02 [employer] 30 MICHAEL INDEFLATOR Used *[id number] BAND, RADIAL COMPRESSION TR [id number] 13:22 [employer] 24CM Used SHORT 24 *[id number] 11:49 [place] WIRE, EXCHANGE 260CM 3MMJ 260CM Used *[id number] 11:49 NAMIC MANIFOLD, 4 PORT * Used *[id number] 11:49 [employer] OMNIPAQUE, 350 MG, 150ML 150ML [id number] Used [id number] 11:49 [facility] BLANKET,WARM AIR CCL * Used *[id number] SHEATH, FR6 TRANSRADIAL [id number] 11:49 [employer] FR 6 Used SLENDER 10CM *[id number] Equipment Model, Serial, Lot Number and Expiration Data Description Model Number Serial Number Lot Number Expiration Date STENT, 2.25 18 INTEGRITY [id number] 07-16-2018 History: Allergies Allergy Reaction No Known Allergies History: Risk Factors Family History of Hypertension Dyslipidemia Previous OH Previous Heart Failure Premature CAD Yes No Yes No No Prior Valve Prior PCI Prior CABG Surgery No No No Cerebrovascular Peripheral Artery Chronic Lung On Dialysis Diabetes Disease Disease Disease No No No No No History: Stress Tests Stress or Imaging Studies Performed No History: Other Current Smoker Method Yes Cigars Labs Hgb (g/dl) Hct (%) RBC (MIL/MM3) WBC (l/cumm) Platelets (thousands) 11.60-17.00 35.00-51.00 4.00-5.90 4.00-11.00 150.00-450.00 8.3 25.7 2.9 6.2 256 Glucose (mg/dl) BUN (mg/dl) Creatinine (mg/dl) BUN:Creatinine (1:x) 74.00-106.00 7.00-18.00 0.50-1.30 10.00-20.00 93 12 0.9 13.3 Na (meq/l) K (meq/l) Cl (meq/l) CO2 (mmol/L) 136.00-145.00 3.50-5.10 98.00-107.00 21.00-32.00 141 4.3 108 27.2 PT (sec) INR (PTT:PT) 9.80-11.60 0.90-1.10 10.8 1 Troponin I (ng/ml) CPK-MB (ng/ML) 0.02-0.05 0.50-3.60 6.03 Not Drawn Medication Medication Total Dose (Bolus/Oral) Medication Total Dosage/Unit 1% XYLOCAINE 20 mL ASPIRIN 325 mg FENTANYL 50 mcg HEPARIN 6500 units NTG (IC) 200 mcg PLAVIX 600 mg RADIAL COCKTAIL 5 mL (Bolus) VERSED 1 mg ZOFRAN 4 mg Medications (Bolus/Oral) Medication Time Given Dosage/Unit Administered By Reason 08/02/2017 12:30:46 VERSED 0.5 mg Claire Johnson 0.5 mg VERSED given in lab by Claire Johnson RN in Right Forearm via Peripheral IV. Ordered by Ian Chapa 08/02/2017 12:31:00 1% XYLOCAINE 20 mL Ian Mckeon 20 mL 1% XYLOCAINE given in lab by Ian Mckeon in Right Radial via Subcutaneous. 08/02/2017 12:31:09 FENTANYL 25 mcg Claire Johnson 25 mcg FENTANYL given in lab by Claire Johnson RN in Right Forearm via Peripheral IV. Ordered by Ian Miles 08/02/2017 12:32:52 Ntg 200mcg Verapamil 2.5mg Heparin RADIAL COCKTAIL 5 mL (Bolus) Ian Mckeon 2500U 5 mL (Bolus) RADIAL COCKTAIL given in lab by Ian Mckeon in Right Radial via Radial. Using [S olution Name]. Reason: Ntg 200mcg Verapamil 2.5mg Heparin 2500U. 08/02/2017 12:34:58 VERSED 0.5 mg Claire Johnson 0.5 mg VERSED given in lab by Claire Johnson RN in Right Forearm via Peripheral IV. Ordered by Ian Chapa 08/02/2017 12:35:09 FENTANYL 25 mcg Claire Johnson 25 mcg FENTANYL given in lab by Claire Johnson RN in Right Forearm via Peripheral IV. Ordered by Ian Miles 08/02/2017 12:45:41 HEPARIN 4500 units Claire Johnson 4500 units HEPARIN given in lab by Claire Johnson RN in Right Forearm via Peripheral IV. Ordered by Ian Mckeon 08/02/2017 12:56:11 HEPARIN 2000 units Claire Johnson 2000 units HEPARIN given in lab by Claire Johnson RN in Right Forearm via Peripheral IV. Ordered by Ian Mckeon. NTG (IC) 08/02/2017 1:09:57 PM 200 mcg Ian Mckeon 200 mcg NTG (IC) given in lab by Ian Mckeon in Right Radial via Intra-coronary. ASPIRIN 08/02/2017 1:21:00 PM 325 mg Claire Johnson 325 mg ASPIRIN given in lab by Claire Johnson RN via Oral. Ordered by Ian Mckeon PLAVIX 08/02/2017 1:22:07 PM 600 mg Claire Johnson 600 mg PLAVIX given in lab by Claire Johnson RN via Oral. Ordered by Ian Mckeon ZOFRAN 08/02/2017 1:28:41 PM 4 mg Claire Johnson 4 mg ZOFRAN given in lab by Claire Johnson RN in Right Forearm via Central IV. Ordered by Ian Mckeon Medication (Drip) Medication Time Given Dosage/Unit Concentration/Unit Diluent (ml) Solution 08/02/2017 12:11:05 IV Solutions 0 mL (IV) 500 NaCl .9 PM Patient arrived on IV Solutions in Right Forearm via Peripheral IV. Pump/Drip Flow = 20 ml/hr using N aCl .9. Ordered by Ian Mckeon Initial Case Assessment Cardiovascular HR Rhythm NIBP Chest Pain 60 sr 137/83 0 Edema Present Skin color Skin None Normal Warm Dry Circulatory - Right Pulses Dorsalis Pedis Femoral Radial 2 2 2 Scale (0,1,2,3,4,d) Scale (0,1,2,3,4,d) Neurological State Oriented to time-place- Alert Moves all extremities person Respiration - General Respiration Rate SpO2 (%) O2 (lpm) (B/min) 18 100 0 Chronological Log Time Study Chronological Log 12:01:21 Patient arrived via Bed. Positive Allens test performed by Selvin Dominguez. 12:01:23 Patient Name, D.O.B, / Armband Verified By R.N. 12:01:24 Consent signed by the physician and the patient and verified by the Electronic Warfare Officer staff. 12:01:25 Pre-op and post- op instructions given; patient acknowledges understanding of instructions. 12:01:28 Verbal Stimulation=2 Physical Stimulation=2 Airway=2 Respiration=2 TOTAL=8. (0=absent, 1=li mited, 2=present) 12:01:37 Presedation assessment performed by Electronic Warfare Officer RN. 12:01:39 Patient has been NPO for More than 6Hrs. Vitals capture started with the following parameters, Patient=Adult, Interval=5 min, Initial Pr kzqctp=207 mmHg, 12:08:47 Deflation Rate=5 mmHg, Cuff placed on Left Arm 12:08:50 Reference ECG taken 12:09:25 HR=64 bpm, VUSR=535/83 mmhg, SwJ6=958.0 %, Resp=21 B/min, Hauser=2 12:09:45 Patient has been NPO for More than 6Hrs. 12:10:16 Skin Breakdown-none present per patient. 12:10:54 A # 20 IV was noted in the Forearm (right). Grade = 0 Patient arrived on IV Solutions in Right Forearm via Peripheral IV. Pump/Drip Flow = 20 ml/hr u sing NaCl .9. Ordered 12:11:05 by Ian Mckeon 12:11:34 History and physical on the chart or being dictated. Assessment: Initial Case, HR=60 BPM, Rhythm=sr, QWCC=438/83 mmhg, Chest Pain=0, Edema=None, Col or=Normal, Skin = Warm, Dry 12:11:37 Right Pulses: Phillip Ped=2, Femoral=2, Radial=2 Neurological: State=Alert, Ox3, MIRANDA Respiration: Resp=18 B/min, TsB6=127 %, O2=0 lpm 12:12:11 Right groin and right radial prepped with 2% chlorhexidine, and draped after a 3 min. waiti ng time. 12:14:20 HR=60 bpm, YXGI=494/82 mmhg, Resp=25 B/min, Hauser=2 12:19:21 HR=59 bpm, FXNA=529/80 mmhg, LmP2=016.0 %, Resp=10 B/min 12:21:20 MD paged 12:21:40 MD responded 12:24:24 HR=58 bpm, NMVN=382/80 mmhg, BqO9=747.0 %, Resp=14 B/min 12:25:27 Pressure channel 1 zeroed. 12:26:10 MD arrived. 12:29:23 HR=56 bpm, FDIH=943/80 mmhg, TaA3=559.0 %, Resp=9 B/min Time Out. Correct patient, correct procedure, correct physician, power injector loaded, or not loaded with contrast with 12:29:48 surgical team present. Time Out Concurred by MD and individual staff in procedure. 12:30:00 Case Start 12:30:46 0.5 mg VERSED given in lab by Claire Johnson RN in Right Forearm via Peripheral IV. Order ed by Ian Mckeon. 12:31:00 20 mL 1% XYLOCAINE given in lab by Ian Mckeon in Right Radial via Subcutaneous. 25 mcg FENTANYL given in lab by Claire Johnson RN in Right Forearm via Peripheral IV. Ordered by Ian Mckeon 12:31: G. 12:32:15 Access site was Right Radial Artery. A SHEATH, FR6 TRANSRADIAL SLENDER 10CM FR 6 was advanced into the Radial (right) using the Perc utaneous 12:32:38 technique. 5 mL (Bolus) RADIAL COCKTAIL given in lab by Ian Mckeon in Right Radial via Radial. Us ing [Solution Name]. 12:32:52 Reason: Ntg 200mcg Verapamil 2.5mg Heparin 2500U. 12:34:24 HR=65 bpm, JIUF=081/74 mmhg, XkC4=573.0 %, Resp=8 B/min 12:34:58 0.5 mg VERSED given in lab by Claire Johnson RN in Right Forearm via Peripheral IV. Order ed by Ian Mckeon. 25 mcg FENTANYL given in lab by Claire Johnson RN in Right Forearm via Peripheral IV. Ordered by Ian Mckeon 12:35:09 G. A JR 4.0 INFINITI CATHETER FR 5 was advanced over a wire. OMNIPAQUE, 350 MG, 150ML 150ML was us ed for 12:35:23 injections. Recorded Pressure: LV, HR=66, Condition=Condition 1 12:36:12 (Left Ventricle) LV 110/6/14 Recorded Pressure: LV, Ao, HR=64, Condition=Condition 1 12:36:26 (Left Ventricle) LV 101/3/10, (Aorta) Ao 112/65/85 12:37:19 The RCA was injected and visualized at various angles. OMNIPAQUE, 350 MG, 150ML 150ML used . After removing the current catheter a JL 3.5 INFINITI CATHETER FR 5 was advanced over a WIRE, E XCHANGE 260CM 12:39:10 3MMJ 260CM. 12:39:21 HR=67 bpm, TCKZ=582/74 mmhg, SpO2=96.0 %, Resp=19 B/min After removing the current catheter a EBU 3.5 Z2 GUIDE CATHETER FR 6 was advanced over a WIRE, EXCHANGE 12:43:30 260CM 3MMJ 260CM. 12:44:23 HR=61 bpm, PANC=463/61 mmhg, SpO2=98.0 %, Resp=11 B/min 4500 units HEPARIN given in lab by Claire Johnson, JUANITA in Right Forearm via Peripheral IV. Orde red by Mike, 12:45:41 Ian Ellison 12:47:54 A WIRE, EXCHANGE 260CM 3MMJ 260CM was inserted via Fem Art (right). 12:49:24 HR=58 bpm, OHJF=546/62 mmhg, RzK1=032.0 %, Resp=17 B/min After removing the current catheter a EBU 4.0 Z2 GUIDE CATHETER FR 6 was advanced over a WIRE, EXCHANGE 12:50:06 260CM 3MMJ 260CM. 12:50:52 Activated Clotting Time Drawn 12:54:25 HR=61 bpm, DAPG=165/65 mmhg, AiZ8=604.0 %, Resp=18 B/min 12:54:59 A WIRE, BALANCE MIDDLEWEIGHT 190CM (DAYO) 190CM was inserted via Radial (right). Recorded Pressure: Ao, HR=66, Condition=Condition 1 12:55:11 (Aorta) Ao 119/64/87 12:55:47 ACT (Normal Range 90-180) = 261 2000 units HEPARIN given in lab by Claire Johnson, JUANITA in Right Forearm via Peripheral IV. Orde red by Mike, 12:56:11 Ian Ellison 12:59:10 Interventional wire has crossed the lesion 12:59:22 HR=63 bpm, IXOE=251/72 mmhg, SwY7=671.0 %, Resp=16 B/min A BALLOON, 2.0 X 12MM EUPHORA 12MM was inserted over WIRE, BALANCE MIDDLEWEIGHT 190CM (DAYO) 19 0CM 13:00:49 via the Radial (right). A BALLOON, 2.0 X 12MM EUPHORA 12MM over a WIRE, BALANCE MIDDLEWEIGHT 190CM (DAYO) 190CM in the OM2 13:01:35 Mid was inflated using a 30 MICHAEL INDEFLATOR at 8 michael for 15 sec. A BALLOON, 2.0 X 12MM EUPHORA 12MM over a WIRE, BALANCE MIDDLEWEIGHT 190CM (DAYO) 190CM in the OM2 13:02:11 Mid was inflated using a 30 MICHAEL INDEFLATOR at 8 michael for 15 sec. 13:03:17 Balloon Removed. 13:04:23 HR=79 bpm, IKPO=975/83 mmhg, GvI6=355.0 %, Resp=16 B/min An STENT, 2.25 18 INTEGRITY 2.25 18 Bare Metal Stent was inserted through a EBU 4.0 Z2 GUIDE CA THETER FR 6 13:04:27 over a WIRE, BALANCE MIDDLEWEIGHT 190CM (DYAO) 190CM. A STENT, 2.25 18 INTEGRITY 2.25 18 was deployed using a 30 MICHAEL INDEFLATOR at 9 atmospheres for 10 seconds in 13:08:18 the OM2 Mid. 13:08:38 Re-inflated the stent balloon in the OM2 Mid to 9 MICHAEL for 10 seconds. 13:09:13 Delivery device removed 13:09:22 HR=70 bpm, GITU=986/82 mmhg, SpO2=99.0 %, Resp=20 B/min 13:09:57 200 mcg NTG (IC) given in lab by Ian Mckeon in Right Radial via Intra-coronary. A BALLOON, 2.25 X 12MM NC EUPHORA 12MM was inserted over WIRE, BALANCE MIDDLEWEIGHT 190CM (DAYO ) 13:12:55 190CM via the Radial (right). A BALLOON, 2.25 X 12MM NC EUPHORA 12MM over a WIRE, BALANCE MIDDLEWEIGHT 190CM (DAYO) 190CM in the 13:13:52 OM2 Mid was inflated using a 30 MICHAEL INDEFLATOR at 12 michael for 15 sec. 13:14:25 HR=68 bpm, JVES=569/78 mmhg, SpO2=97.0 %, Resp=18 B/min A BALLOON, 2.25 X 12MM NC EUPHORA 12MM over a WIRE, BALANCE MIDDLEWEIGHT 190CM (DAYO) 190CM in the 13:14:40 OM2 Mid was inflated using a 30 MICHAEL INDEFLATOR at 12 michael for 10 sec. 13:14:54 Balloon Removed. :18:17 [employer] Wire removed 13:18:29 A WIRE, EXCHANGE 260CM 3MMJ 260CM was inserted via Fem Art (right). 13:18:48 Catheter was removed 13:18:52 Wire removed 13:19:24 HR=70 bpm, ENSU=739/78 mmhg, SpO2=97.0 %, Resp=16 B/min 13:19:34 Case End 13:21:00 325 mg ASPIRIN given in lab by Claire Johnson, JUANITA via Oral. Ordered by Ian Mckeon Radial Compression Device Used. 11 mLs of air placed in BAND, RADIAL COMPRESSION TR SHORT 24 24 CM. Affected 13:21:10 hand 97 % O2 saturation. 13:21:21 No case complications noted. 13:21:31 Bedside Report will be given. 13:21:33 Implantable Device card placed in patient's chart. 13:21:37 A Left Heart Cath was performed. 13:22:07 600 mg PLAVIX given in lab by Claire Johnson, JUANITA via Oral. Ordered by Ian Mckeon 13:24:58 HR=77 bpm, WYLJ=910/90 mmhg, SpO2=99.0 %, Resp=15 B/min 13:28:41 4 mg ZOFRAN given in lab by Claire Johnson, JUANITA in Right Forearm via Central IV. Ordered by Ian Mckeon 13:29:57 Vitals capture stopped. 13:37:00 Patient moved to [facility] End Study - Contrast Media Used In Study Contrast Total Opened (mL) Total Used (mL) Total Wasted (mL) Omnipaque 135 135 0 End Study - Maximum Contrast Load Max Contrast Load (mL) 352.8 End Study - Radiation Exposure Fluoro Time (minutes) 15.5 End Study - Patient Disposition Complications Transferred To Interventional Outcome No Telemetry Bed successful
[2017-08-02] MEDS ORDERED: MISC INFORMATION XX ONE (14:00)
--- NOTE | 2017-08-02 16:17 | PD.CARD.PN ---
Subjective Subjective Remarks Post cath Doing well, no complaints Objective Medications Current Medications Medications (Trade) Dose Ordered Sig/Charlie Route Start Time Stop Time Status Last Admin (Ativan Inj) 1 mg Q2H PRN IV PUSH 07/31/17 22:15 (NS Flush) 2 ml UNSCH PRN IV FLUSH 07/31/17 22:15 (NS Flush) 2 ml BID IV FLUSH 08/01/17 09:00 08/02/17 09:50 (Zofran Inj) 4 mg Q6H PRN IVP 07/31/17 22:15 (Tylenol) 650 mg Q6H PRN PO 07/31/17 22:15 ([place] 5-325 Mg) 1 tab Q4H PRN PO 07/31/17 22:15 (Morphine Inj) 4 mg Q3H PRN IV PUSH 07/31/17 22:15 (Lora-Colace) 1 tab BID PO 08/01/17 09:00 08/02/17 09:50 (Milk Of Magnesia Liq) 30 ml Q12H PRN PO 07/31/17 22:15 (Senokot) 17.2 mg Q12H PRN PO 07/31/17 22:15 (Dulcolax Supp) 10 mg DAILY PRN RECTAL 07/31/17 22:15 (Lactulose Liq) 30 ml DAILY PRN PO 07/31/17 22:15 (Nitroglycerin 2% Oint) 0.5 inch Q6HR PRN TOPICAL 07/31/17 22:45 Sodium Chloride 1,000 ml @ 100 mls/hr Q10H IV 08/02/17 13:47 08/02/17 19:46 08/02/17 14:10 (Aspirin Chew) 81 mg DAILY PO 08/03/17 09:00 (Plavix) 75 mg DAILY PO 08/03/17 09:00 (Prinivil) 5 mg DAILY PO 08/03/17 09:00 (Lipitor) 80 mg HS PO 08/02/17 21:00 Vital Signs / I&O Vital Signs Date Time Temp Pulse Resp B/P (MAP) Pulse Ox O2 Delivery O2 Flow Rate FiO2 08/02/17 15:00 68 17 123/64 (83) 100 08/02/17 15:00 99 Room Air 08/02/17 15:00 77 08/02/17 14:00 61 11/27/17 13:50 67 17 122/72 (89) 99 08/02/17 11:00 98.1 69 17 146/83 (104) 100 08/02/17 11:00 100 Nasal Cannula 2.00 08/02/17 11:00 62 08/02/17 10:35 67 17 141/70 (93) 100 08/02/17 10:00 76 08/02/17 08:00 98.2 63 22 123/70 (87) 100 08/02/17 08:00 66 08/02/17 06:00 66 08/02/17 04:00 67 08/02/17 04:00 98.0 67 24 148/78 (101) 100 08/02/17 02:00 69 08/02/17 00:00 62 08/02/17 00:00 98.4 77 25 135/78 (97) 100 08/01/17 22:00 72 08/01/17 20:00 69 08/01/17 19:16 100 Nasal Cannula 2.00 08/01/17 18:19 98.0 71 22 131/72 (91) 100 08/01/17 18:00 62 I/O 08/01/17 08/01/17 08/01/17 08/02/17 08/02/17 08/02/17 07:00 15:00 23:00 07:00 15:00 23:00 Intake Total 579 ml 487 ml 480 ml Output Total 600 ml 800 ml 1600 ml 350 ml Balance -21 ml 487 ml -320 ml -1600 ml -350 ml Intake Oral 0 ml 480 ml IV Total 579 ml 487 ml Output Urine Total 600 ml 800 ml 1600 ml 350 ml # Bowel Movements 0 0 Physical Exam GENERAL: NAD, AAOx3 SKIN: Warm and dry. HEAD: Atraumatic. Normocephalic. EYES: Pupils equal and round. No scleral icterus. No injection or drainage. ENT: No nasal bleeding or discharge. Mucous membranes pink and moist. NECK: Trachea midline. No JVD. CARDIOVASCULAR: Regular rate and rhythm. RESPIRATORY: No accessory muscle use. Clear to auscultation. Breath sounds equal bilaterally. GASTROINTESTINAL: Abdomen soft, non-tender, nondistended. Hepatic and splenic margins not palpable. MUSCULOSKELETAL: Extremities without clubbing, cyanosis, or edema. No obvious deformities. NEUROLOGICAL: Awake and alert. No obvious cranial nerve deficits. Motor grossly within normal limits. Five out of 5 muscle strength in the arms and legs. Normal speech. PSYCHIATRIC: Appropriate mood and affect; insight and judgment normal. Laboratory Laboratory Tests Test 08/02/17 06:14 White Blood Count 6.2 TH/MM3 Red Blood Count 2.94 MIL/MM3 Hemoglobin 8.3 GM/DL Hematocrit 25.7 % Mean Corpuscular Volume 87.3 FL Mean Corpuscular Hemoglobin 28.2 PG Mean Corpuscular Hemoglobin Concent 32.3 % Red Cell Distribution Width 19.5 % Platelet Count 256 TH/MM3 Mean Platelet Volume 8.7 FL Neutrophils (%) (Auto) 57.6 % Lymphocytes (%) (Auto) 29.8 % Monocytes (%) (Auto) 10.2 % Eosinophils (%) (Auto) 2.2 % Basophils (%) (Auto) 0.2 % Neutrophils # (Auto) 3.6 TH/MM3 Lymphocytes # (Auto) 1.9 TH/MM3 Monocytes # (Auto) 0.6 TH/MM3 Eosinophils # (Auto) 0.1 TH/MM3 Basophils # (Auto) 0.0 TH/MM3 CBC Comment DIFF FINAL Differential Comment Activated Partial Thromboplast Time 55.1 SEC Blood Urea Nitrogen 12 MG/DL Creatinine 0.98 MG/DL Random Glucose 93 MG/DL Calcium Level 8.0 MG/DL Sodium Level 141 MEQ/L Potassium Level 4.3 MEQ/L Chloride Level 108 MEQ/L Carbon Dioxide Level 27.2 MEQ/L Anion Gap 6 MEQ/L Estimat Glomerular Filtration Rate 96 ML/MIN Iron Level 26 MCG/DL Total Iron Binding Capacity 304 MCG/DL Percent Iron Saturation 8.6 % Ferritin 67 NG/ML Assessment and Plan Problem List: (1) NSTEMI (non-ST elevated myocardial infarction) ICD Codes: I21.4 - Non-ST elevation (NSTEMI) myocardial infarction (2) Tobacco abuse ICD Codes: Z72.0 - Tobacco use (3) Anemia ICD Codes: D64.9 - Anemia, unspecified (4) Cocaine abuse ICD Codes: F14.10 - Cocaine abuse, uncomplicated (5) Dehydration ICD Codes: E86.0 - Dehydration Assessment and Plan 1) NSTEMI s/p BMS (2.25x18) to OM2 2) ASA/Plavix/ABDI-I/Statin Not placed on BB therapy due to crack cocaine history Discussed importance of continuing ASA indefinitely and Plavix for at least 12 months 3) Echo pending 4) Possible discharge in the morning 5) Social work consulted for help with discharge Ian Mckeon DO Aug 02, 2017 16:17
[2017-08-02] MEDS ORDERED: IOHEXOL 350 MG/ML 50 ML BTL (for Cath Lab) OTHER ONE (16:39)
[2017-08-02] MEDS ORDERED: IOHEXOL 350 MG/ML 100 ML BTL (for Cath Lab) OTHER ONE (16:39)
[2017-08-02] MEDS ORDERED: ATORVASTATIN 80 MG TAB PO SCH (21:00)
--- NOTE | 2017-08-02 23:58 | MA ---
cc: IAN STEELE DO DATE August 02, 2017 PROCEDURE Left heart catheterization, coronary angiogram, moderate sedation 50 minutes, bare metal stent (2.25 x 18) to second obtuse marginal. PREPROCEDURE DIAGNOSIS NSTEMI, chest pain. POSTPROCEDURE DIAGNOSIS NSTEMI status post bare metal stent (2.25 x 18) to the second obtuse marginal. MEDICATIONS 1. Versed 1 milligram. 2. Fentanyl 50 micrograms. 3. Heparin 1,000 units. 4. Verapamil 2.5 milligrams. 5. Nitro 200 micrograms. 6. Aspirin 325 milligrams. 7. Plavix 600 milligrams. 8. Zofran 4 milligrams. CONTRAST USED 135 cc. FLUOROSCOPY 15.5 minutes. MODERATE SEDATION 50 minutes. ESTIMATED BLOOD LOSS 10 cc. PROCEDURAL SUMMARY Oni Machado is a 57-year-old male who presented to [facility] due to chest pain and was found to have an elevated troponin. He admits to smoking crack cocaine a week before and has had chest pain on and off since that time. Because of the elevated troponin he was recommended cardiac catheterization. Risks, benefits and alternatives were explained to him and he consented as such. He was brought to the lab and prepped in the usual sterile fashion. Right radial artery was accessed using a modified Seldinger technique and placement of a 5/6 Tamazight slender sheath. This was easily aspirated and flushed. The JR-4 was advanced over a J-wire to the ascending aorta and across the aortic valve for measurement of left ventricular pressure. This was pulled back across the aortic valve showing no significant gradient of aortic stenosis. JR-4 was used for selective angiography of the right coronary artery system. This was exchanged out for a JL-3.5 which was used for selective angiography of the left coronary artery system. Please see notes below for intervention. At the end of the case a radial band was placed over the arteriotomy site for hemostasis. The patient was loaded with aspirin and Plavix. He left the brine room laborer cardiovascularly stable. FINDINGS Left main: Normal size vessel with no significant disease. It trifurcates into an LAD, ramus and circumflex. LAD: Moderate to large size vessel with mild luminal irregularities throughout the midportion and significant tortuosity due to longstanding hypertension. It gives off two diagonals with 30% ostial stenosis each. Ramus: Moderate size vessel with no significant disease. Left circumflex: Moderate size vessel with no significant disease in the proximal portion. It gives off two obtuse marginals. First has no significant disease. Second obtuse marginal has a 99% stenosis in the midportion. There appears to be subtotal occlusion of the circumflex proper which is overall a small vessel. RCA: Normal-size vessel with mild luminal irregularities throughout the mid and distal portion. Distally, it supplies the PDA, multiple PLVs - all with significant tortuosity most likely due to long-term hypertension. LVEDP 10. INTERVENTION Because of the significance of the disease noted in the second obtuse marginal I felt that this needed to be intervened on. An EBU 4 guide catheter was engaged in the left main. Heparin was given as an anticoagulant. The BMW wire was advanced to the distal portion of the second obtuse marginal. A compliant balloon (2 x 12) was used to predilate the lesion. A bare metal stent (2.25 x 18) was then placed over the lesion and inflated. A noncompliant balloon (2.25 x 12) was then used to post dilate the stent. Final angiogram shows a well opposed stent with no perforations or dissections. Wire was removed as well as the guide catheter. The patient was loaded with aspirin and Plavix. The patient left the brine room laborer cardiovascularly stable. IMPRESSION 1. NSTEMI status post bare metal stent (2.25 x 18) to the second obtuse marginal. 2. Chest pain concerning for coronary insufficiency. 3. History of crack cocaine abuse. RECOMMENDATIONS 1. Mr. Machado underwent stenting of his obtuse marginal with a bare metal stent and was placed on aspirin and Plavix therapy. I discussed with him that aspirin should be continued indefinitely and Plavix for at least 12 months as he presented with an NSTEMI. 2. We will check an echo to look at his overall left ventricular function, cardiac structure and possible valvulopathies. 3. We will add ABDI inhibitor and statin therapy to his regimen. Beta blockers will be avoided at this time as he presented using cocaine. 4. I discussed with him about his cocaine use and in discussing with him and his sister apparently he has fallen on hard times and does not have a history of drug abuse. 5. If stable tomorrow we will plan to discharge him home. I have asked the caser in to help with arranging to get him his medications. Thank you for allowing me to see Oni Mahcado. If there are any questions please do not hesitate to call. Ian Steele DO VGP/EO /11:16 PM /11:34 PM MTDD
[2017-08-03] VITALS (20 sets, daily range): BP systolic 116–132; BP diastolic 66–71; PULSE 56–83; RESP 16–18; TEMP 98.2–99.1; O2SAT 99–100
[2017-08-03 05:37] LABS: HEMATOCRIT 23.8 % (39.0-51.0); MEAN CELL VOLUME 86.3 FL (80.0-100.0); MEAN CORPUSCULAR HEMOGLOBIN 28.7 PG (27.0-34.0); MEAN CORPUSCULAR HGB CONC 33.3 % (32.0-36.0); PLATELET COUNT 292 TH/MM3 (150-450); RED BLOOD COUNT 2.75 MIL/MM3 (4.50-5.90); REVIEW FLAG FINAL; WHITE BLOOD COUNT 6.9 TH/MM3 (4.0-11.0)
[2017-08-03 05:45] LABS: APTT (PATIENT) 41.8 SEC (24.3-30.1)
[2017-08-03 05:56] LABS: BICARBONATE 27.1 MEQ/L (21.0-32.0); POTASSIUM 4.1 MEQ/L (3.5-5.1)
--- NOTE | 2017-08-03 08:04 | HHI.PR ---
Subjective Remarks in no acute distress. says that had slight chest pain last night which has resolved. no sob. no BM yet. no other complaints. Objective Vitals Vital Signs Date Time Temp Pulse Resp B/P (MAP) Pulse Ox O2 Delivery O2 Flow Rate FiO2 08/03/17 06:03 59 08/03/17 05:06 70 08/03/17 04:00 63 08/03/17 03:03 99.1 65 17 128/71 (90) 99 08/03/17 03:00 62 08/03/17 02:01 74 08/03/17 01:00 76 08/02/17 23:00 69 08/02/17 22:36 97.8 70 17 129/73 (91) 99 08/02/17 21:00 75 08/02/17 19:00 99.1 80 17 108/54 (72) 98 08/02/17 19:00 66 08/02/17 18:00 76 08/02/17 17:00 67 08/02/17 16:00 68 08/02/17 15:00 68 17 123/64 (83) 100 08/02/17 15:00 99 Room Air 08/02/17 15:00 77 08/02/17 14:00 61 08/02/17 13:50 67 17 122/72 (89) 99 08/02/17 11:00 98.1 69 17 146/83 (104) 100 08/02/17 11:00 100 Nasal Cannula 2.00 08/02/17 11:00 62 08/02/17 10:35 67 17 141/70 (93) 100 08/02/17 10:00 76 I/O 08/02/17 08/02/17 08/02/17 08/03/17 08/03/17 08/03/17 07:00 15:00 23:00 07:00 15:00 23:00 Intake Total 805 ml 480 ml Output Total 1600 ml 350 ml 1280 ml 775 ml Balance -1600 ml -350 ml -475 ml -295 ml Intake Oral 480 ml 480 ml IV Total 325 ml Output Urine Total 1600 ml 350 ml 1280 ml 775 ml # Bowel Movements 0 Result Diagram: 08/03/1744308/03/17443 Imaging Last Impressions Chest X-Ray 07/31/172052 Signed Impressions: Service Date/Time: Monday, July 31, 2017 21:24 - CONCLUSION: The lungs are clear. Marcio Mejia MD Objective Remarks GENERAL: This is a well-nourished, well-developed patient, in no apparent distress. CARDIOVASCULAR: Regular rate and regular rhythm without murmurs, gallops, or rubs. RESPIRATORY: Clear to auscultation. Breath sounds equal bilaterally. No wheezes , rales, or rhonchi. GASTROINTESTINAL: Abdomen soft, non-tender, nondistended. Normal, active bowel sounds MUSCULOSKELETAL: Extremities without clubbing, cyanosis, or edema. NEURO: Alert & Oriented x4 to person, place, time, situation. Moves all ext x4 Medications and IVs Current Medications Aspirin (Aspirin Chew) 324 mg ONCE ONCE PO Last administered on 07/31/17 21: 11; Start 07/31/17 at 21:00; Stop 07/31/17 at 21:01; Status DC Sodium Chloride (NS Flush) 2 ml UNSCH PRN IVF FLUSH AFTER USING IV ACCESS; Start 07/31/17 at 21:00; Stop 07/31/17 at 22:16; Status DC Nitroglycerin (Nitrostat Sl) 0.4 mg ONCE ONCE SL Last administered on 21:12; Start 07/31/17 at 21:00; Stop 07/31/17 at 21:01; Status DC Heparin Sodium (Porcine) (Heparin Inj) 3,500 units ONCE ONCE IV Last administered on 07/31/17 22:08; Start 07/31/17 at 22:00; Stop 07/31/17 at 22 :02; Status DC Heparin Sodium/ Dextrose 250 ml @ 8 mls/hr TITRATE PRN IV Coagulation Management Last administered on 08/02/17 04:23; Start 07/31/17 at 22:00; Stop 08/02/17 at 14:05; Status DC Lorazepam (Ativan Inj) 1 mg Q2H PRN IV PUSH CHEST PAIN ; Start 07/31/17 at 22: 15 Sodium Chloride 1,000 ml @ 100 mls/hr Q10H IV Last administered on 08/02/17 14:03; Start 07/31/17 at 22:07; Stop 08/02/17 at 14:05; Status DC Sodium Chloride (NS Flush) 2 ml UNSCH PRN IV FLUSH FLUSH AFTER USING IV ACCESS ; Start 07/31/17 at 22:15 Sodium Chloride (NS Flush) 2 ml BID IV FLUSH Last administered on 08/02/17 09 :50; Start 08/01/17 at 09:00 Ondansetron HCl (Zofran Inj) 4 mg Q6H PRN IVP NAUSEA OR VOMITING; Start at 22:15 Acetaminophen (Tylenol) 650 mg Q6H PRN PO FEVER/PAIN SCALE 1 TO 2; Start 07/31 at 22:15 Acetaminophen/ Hydrocodone Bitart ([place] 5-325 Mg) 1 tab Q4H PRN PO PAIN SCALE 3 TO 5; Start 07/31/17 at 22:15 Morphine Sulfate (Morphine Inj) 4 mg Q3H PRN IV PUSH Pain 6-10; Start at 22:15 Senna/Docusate Sodium (Lora-Colace) 1 tab BID PO Last administered on 21:26; Start 08/01/17 at 09:00 Magnesium Hydroxide (Milk Of Magnesia Liq) 30 ml Q12H PRN PO Mild constipation ; Start 07/31/17 at 22:15 Sennosides (Senokot) 17.2 mg Q12H PRN PO Moderate constipation; Start at 22:15 Bisacodyl (Dulcolax Supp) 10 mg DAILY PRN RECTAL SEVERE CONSITIPATION; Start 07/31/17 at 22:15 Lactulose (Lactulose Liq) 30 ml DAILY PRN PO SEVERE CONSITIPATION; Start 07/31 at 22:15 Nitroglycerin (Nitroglycerin 2% Oint) 0.5 inch Q6HR PRN TOPICAL CHEST PAIN; Start 07/31/17 at 22:45 Heparin Sodium/ Sodium Chloride 500 ml @ As Directed STK-MED ONCE .ROUTE Last administered on 08/02/17 12:06; Start 08/02/17 at 12:06; Stop 08/02/17 at 12 :07; Status DC Midazolam HCl (Versed Inj) 2 mg STK-MED ONCE .ROUTE Last administered on 12:30; Start 08/02/17 at 12:06; Stop 08/02/17 at 12:07; Status DC Fentanyl Citrate (fentaNYL INJ) 100 mcg STK-MED ONCE .ROUTE Last administered on 08/02/17 12:30; Start 08/02/17 at 12:06; Stop 08/02/17 at 12:07; Status DC Verapamil HCl (Isoptin Inj) 5 mg STK-MED ONCE .ROUTE Last administered on 08/02 12:32; Start 08/02/17 at 12:06; Stop 08/02/17 at 12:07; Status DC Heparin Sodium (Porcine) (Heparin Inj) 10,000 units STK-MED ONCE .ROUTE Last administered on 08/02/17 12:32; Start 08/02/17 at 12:06; Stop 08/02/17 at 12 :07; Status DC Nitroglycerin 5 ml @ As Directed STK-MED ONCE .ROUTE Last administered on 08/02 12:32; Start 08/02/17 at 12:07; Stop 08/02/17 at 12:08; Status DC Clopidogrel Bisulfate (Plavix) 600 mg STK-MED ONCE .ROUTE Last administered on 08/02/17 13:22; Start 08/02/17 at 13:07; Stop 08/02/17 at 13:08; Status DC Aspirin (Aspirin) 325 mg STK-MED ONCE .ROUTE Last administered on 08/02/17 13 :21; Start 08/02/17 at 13:07; Stop 08/02/17 at 13:08; Status DC Ondansetron HCl (Zofran Inj) 4 mg STK-MED ONCE .ROUTE Last administered on 13:28; Start 08/02/17 at 13:25; Stop 08/02/17 at 13:26; Status DC Sodium Chloride 1,000 ml @ 100 mls/hr Q10H IV Last administered on 08/02/17 14:10; Start 08/02/17 at 13:47; Stop 08/02/17 at 19:46; Status DC Aspirin (Aspirin Chew) 81 mg DAILY PO ; Start 08/03/17 at 09:00 Clopidogrel Bisulfate (Plavix) 75 mg DAILY PO ; Start 08/03/17 at 09:00 Miscellaneous Information 1 ONCE ONCE XX ; Start 08/02/17 at 14:00; Stop 11/ 27/17 at 14:05; Status DC Lisinopril (Prinivil) 5 mg DAILY PO ; Start 08/03/17 at 09:00 Atorvastatin Calcium (Lipitor) 80 mg HS PO Last administered on 08/02/17t 21: 26; Start 08/02/17 at 21:00 Iohexol (OMNIPAQUE 350 INJ (Senior Benefits Manager)) 100 ml STK-MED ONCE OTHER ; Start at 16:39; Stop 08/02/17 at 16:40; Status DC Iohexol (OMNIPAQUE 350 INJ (Senior Benefits Manager)) 50 ml STK-MED ONCE OTHER ; Start at 16:39; Stop 08/02/17 at 16:40; Status DC A/P Problem List: (1) NSTEMI (non-ST elevated myocardial infarction) ICD Code: I21.4 - Non-ST elevation (NSTEMI) myocardial infarction (2) Cocaine abuse ICD Code: F14.10 - Cocaine abuse, uncomplicated (3) Dehydration ICD Code: E86.0 - Dehydration (4) Anemia ICD Code: D64.9 - Anemia, unspecified (5) Tobacco abuse ICD Code: Z72.0 - Tobacco use Assessment and Plan A/P 1. NSTEMI: s/p cardiac cath and stent placement;started on aspirin, plavix,statin and lisinopril- no BB due to cocaine use. echo pending. 2. Cocaine Abuse: Pt counselled. Ativan prn 3. Anemia: no previous labs for comparison. Sickle Cell Trait per history. No active bleeding and denies any history of melena. monitor H/H- stool for blood pending. 4. Tobacco Abuse: Pt counselled. Ativan prn. No NicoDerm to avoid vasoconstriction. 5. constipation; laxatives as needed. Discharge Planning likely dc home later today- pending cardiology f/u and repeated H/H. f/u; pcp and cardiology upon discharge. see med list. d/w the patient; advised to stop smoking and using cocaine. case management consulted to assist with outpatient f/u's and meds. Kristian Melton MD Aug 03, 2017 08:04
[2017-08-03] MEDS ORDERED: ASPI81 PO (08:06)
[2017-08-03] MEDS ORDERED: LISI-519 PO (08:06)
[2017-08-03] MEDS ORDERED: NITR1SUB3 SL (08:06)
[2017-08-03] MEDS ORDERED: PLAV75TA29 PO (08:06)
[2017-08-03] MEDS ORDERED: ATOR80TA45 PO (08:06)
[2017-08-03] MEDS ORDERED: BISACODYL EC 5 MG TABEC PO ONE (08:15)
[2017-08-03] MEDS: SODIUM CHLORIDE 0.9% FLUSH 10 ML FLUSH IV FLUSH SCH (08:24)
[2017-08-03] MEDS: DOCUSATE SODIUM 50 MG/SENNA 8.6 MG TAB PO SCH (08:24)
[2017-08-03] MEDS ORDERED: ASPIRIN 81 MG CHEW TAB PO SCH (09:00)
[2017-08-03] MEDS ORDERED: LISINOPRIL 5 MG TAB PO SCH (09:00)
[2017-08-03] MEDS ORDERED: CLOPIDOGREL 75 MG TAB PO SCH (09:00)
[2017-08-03 10:57] LABS: HDL CHOLESTEROL 38.6 MG/DL (40.0-60.0)
--- NOTE | 2017-08-03 11:56 | HHI.DS ---
Discharge Summary Admission Date Jul 31, 2017 at 22:10 Discharge Date: Aug 03, 2017 Admitting Diagnosis NSTEMI (1) NSTEMI (non-ST elevated myocardial infarction) ICD Code: I21.4 - Non-ST elevation (NSTEMI) myocardial infarction Diagnosis: Principal (2) Cocaine abuse ICD Code: F14.10 - Cocaine abuse, uncomplicated Diagnosis: Principal (3) Anemia ICD Code: D64.9 - Anemia, unspecified Diagnosis: Secondary (4) Tobacco abuse ICD Code: Z72.0 - Tobacco use Diagnosis: Secondary Procedures cardiac cath. Brief History - From Admission This is a 57-year-old male with PMH of HTN, Tobacco Abuse and Cocaine Abuse who presented to the ER with complaints of chest pain and SOB x1 wk. States symptoms started after smoking Crack Cocaine a week ago, now pain progressively worse. Denies Cocaine since last Wednesday due to c/o chest pain. No cough, fever or chills. On arrival, BP 145/84, HR 83, O2 sat 100% on RA, Afebrile. Hemoglobin 9.3, no previous labs for comparison. GFR 78. Troponin 9.27. EKG with no acute changes. INR 1.0. CXR with no acute findings. Started on Heparin gtt in ER. Dr. Mckeon consulted by ER physician. Pt currently chest pain free. CBC/BMP: 08/03/17 0444 08/03/17 0444 Significant Findings Laboratory Tests Test 07/31/17 20:50 07/31/17 20:53 07/31/17 23:50 08/01/17 00:00 Activated Partial Thromboplast Time 37.6 SEC (24.3-30.1) Albumin 3.2 GM/DL (3.4-5.0) Aspartate Amino Transf (AST/SGOT) 43 U/L (15-37) Estimat Glomerular Filtration Rate 78 ML/MIN (>89) Troponin I 9.27 NG/ML (0.02-0.05) Red Blood Count 3.22 MIL/MM3 (4.50-5.90) Hemoglobin 9.3 GM/DL (13.0-17.0) Hematocrit 27.7 % (39.0-51.0) Red Cell Distribution Width 19.2 % (11.6-17.2) Monocytes (%) (Auto) 10.6 % (0.0-8.0) Monocytes # (Auto) 1.0 TH/MM3 (0-0.9) Urine Mucus FEW /lpf (OCC) Urine Cocaine Screen POS (NEG) Test 08/01/17 03:47 08/01/17 03:49 08/01/17 11:26 08/02/17 06:14 Activated Partial Thromboplast Time 69.5 SEC (24.3-30.1) 45.0 SEC (24.3-30.1) 55.1 SEC (24.3-30.1) Troponin I 7.32 NG/ML (0.02-0.05) 6.03 NG/ML (0.02-0.05) Red Blood Count 2.88 MIL/MM3 (4.50-5.90) 2.94 MIL/MM3 (4.50-5.90) Hemoglobin 8.0 GM/DL (13.0-17.0) 8.3 GM/DL (13.0-17.0) Hematocrit 24.9 % (39.0-51.0) 25.7 % (39.0-51.0) Red Cell Distribution Width 19.0 % (11.6-17.2) 19.5 % (11.6-17.2) Monocytes (%) (Auto) 11.9 % (0.0-8.0) 10.2 % (0.0-8.0) Albumin 2.7 GM/DL (3.4-5.0) Calcium Level 8.0 MG/DL (8.5-10.1) Chloride Level 108 MEQ/L (98-107) Iron Level 26 MCG/DL (65-175) Percent Iron Saturation 8.6 % (20-50) Test 08/03/17 04:44 Red Blood Count 2.75 MIL/MM3 (4.50-5.90) Hemoglobin 7.9 GM/DL (13.0-17.0) Hematocrit 23.8 % (39.0-51.0) Red Cell Distribution Width 19.0 % (11.6-17.2) Activated Partial Thromboplast Time 41.8 SEC (24.3-30.1) Calcium Level 7.9 MG/DL (8.5-10.1) Estimat Glomerular Filtration Rate 86 ML/MIN (>89) LDL Cholesterol 103 MG/DL (0-99) HDL Cholesterol 38.6 MG/DL (40.0-60.0) Imaging Last Impressions Chest X-Ray 07/31/172052 Signed Impressions: Service Date/Time: Monday, July 31, 2017 21:24 - CONCLUSION: The lungs are clear. Marcio Mejia MD PE at Discharge GENERAL: This is a well-nourished, well-developed patient, in no apparent distress. CARDIOVASCULAR: Regular rate and regular rhythm without murmurs, gallops, or rubs. RESPIRATORY: Clear to auscultation. Breath sounds equal bilaterally. No wheezes , rales, or rhonchi. GASTROINTESTINAL: Abdomen soft, non-tender, nondistended. Normal, active bowel sounds MUSCULOSKELETAL: Extremities without clubbing, cyanosis, or edema. NEURO: Alert & Oriented x4 to person, place, time, situation. Moves all ext x4 Hospital Course 1. NSTEMI: s/p cardiac cath and stent placement;started on aspirin, plavix,statin and lisinopril- no BB due to cocaine use. echo pending. 2. Cocaine Abuse: Pt counselled. Ativan prn 3. Anemia: no previous labs for comparison. Sickle Cell Trait per history. No active bleeding and denies any history of melena. monitor H/H- stool for blood pending. 4. Tobacco Abuse: Pt counselled. Ativan prn. No NicoDerm to avoid vasoconstriction. 5. constipation; laxatives as needed. Pt Condition on Discharge: Fair Discharge Disposition: Discharge Home Discharge Time: <= 30 minutes Discharge Instructions DIET: Follow Instructions for: Heart Healthy Diet Activities you can perform: Regular-No Restrictions Follow up Referrals: Cardiology PCP Follow-up New Medications: Nitroglycerin SL (Nitroglycerin SL) 0.4 Mg Subl 0.4 MG SL DIRECTED PRN for CHEST PAIN, #20 TAB.SL 0 Refills ONE TABLET UNDER THE TONGUE NEEDED FOR CHEST PAIN, MAY REPEAT EVERY FIVE MINUTES FOR A TOTAL OF 3 DOSES OR CALL 911 IF NO RELIEF Aspirin (Tgt Aspirin) 81 Mg Chw 81 MG PO DAILY for cad for 30 Days, EA 0 Refills Atorvastatin (Atorvastatin) 80 Mg Tab 80 MG PO HS for cad for 30 Days, TAB 0 Refills Clopidogrel (Plavix) 75 Mg Tab 75 MG PO DAILY for cad for 30 Days, #30 TAB 0 Refills Lisinopril (Lisinopril) 5 Mg Tab 5 MG PO DAILY for cad for 30 Days, #30 TAB 0 Refills Kristian Melton MD Aug 03, 2017 11:56
[2017-08-03 12:28] LABS: HEMATOCRIT 26.7 % (39.0-51.0)
--- NOTE | 2017-08-03 13:39 | PD.CARD.PN ---
Subjective Subjective Remarks Post cath Doing well, no complaints Objective Medications Current Medications Medications (Trade) Dose Ordered Sig/Charlie Route Start Time Stop Time Status Last Admin (Ativan Inj) 1 mg Q2H PRN IV PUSH 07/31/17 22:15 (NS Flush) 2 ml UNSCH PRN IV FLUSH 07/31/17 22:15 (NS Flush) 2 ml BID IV FLUSH 08/01/17 09:00 08/03/17 08:24 (Zofran Inj) 4 mg Q6H PRN IVP 07/31/17 22:15 (Tylenol) 650 mg Q6H PRN PO 07/31/17 22:15 ([place] 5-325 Mg) 1 tab Q4H PRN PO 07/31/17 22:15 (Morphine Inj) 4 mg Q3H PRN IV PUSH 07/31/17 22:15 (Lora-Colace) 1 tab BID PO 08/01/17 09:00 08/03/17 08:24 (Milk Of Magnesia Liq) 30 ml Q12H PRN PO 07/31/17 22:15 (Senokot) 17.2 mg Q12H PRN PO 07/31/17 22:15 (Dulcolax Supp) 10 mg DAILY PRN RECTAL 07/31/17 22:15 (Lactulose Liq) 30 ml DAILY PRN PO 07/31/17 22:15 (Nitroglycerin 2% Oint) 0.5 inch Q6HR PRN TOPICAL 07/31/17 22:45 (Aspirin Chew) 81 mg DAILY PO 08/03/17 09:00 08/03/17 08:24 (Plavix) 75 mg DAILY PO 08/03/17 09:00 08/03/17 08:24 (Prinivil) 5 mg DAILY PO 08/03/17 09:00 08/03/17 08:24 (Lipitor) 80 mg HS PO 08/02/17 21:00 08/02/17 21:26 Vital Signs / I&O Vital Signs Date Time Temp Pulse Resp B/P (MAP) Pulse Ox O2 Delivery O2 Flow Rate FiO2 08/03/17 13:00 76 08/03/17 12:00 69 08/03/17 11:46 98.2 71 18 116/66 (83) 100 08/03/17 11:00 75 08/03/17 10:00 76 08/03/17 09:00 68 08/03/17 08:00 66 08/03/17 07:17 98.6 68 16 132/67 (88) 99 08/03/17 07:00 56 08/03/17 06:03 59 08/03/17 05:06 70 08/03/17 04:00 63 08/03/17 03:03 99.1 65 17 128/71 (90) 99 08/03/17 03:00 62 08/03/17 02:01 74 08/03/17 01:00 76 08/02/17 23:00 69 08/02/17 22:36 97.8 70 17 129/73 (91) 99 08/02/17 21:00 75 08/02/17 19:00 99.1 80 17 108/54 (72) 98 08/02/17 19:00 66 08/02/17 18:00 76 08/02/17 17:00 67 08/02/17 16:00 68 08/02/17 15:00 68 17 123/64 (83) 100 08/02/17 15:00 99 Room Air 08/02/17 15:00 77 08/02/17 14:00 61 08/02/17 13:50 67 17 122/72 (89) 99 I/O 08/02/17 08/02/17 08/02/17 08/03/17 08/03/17 08/03/17 06:59 14:59 22:59 06:59 14:59 22:59 Intake Total 805 ml 480 ml Output Total 1600 ml 350 ml 1280 ml 775 ml Balance -1600 ml -350 ml -475 ml -295 ml Intake Oral 480 ml 480 ml IV Total 325 ml Output Urine Total 1600 ml 350 ml 1280 ml 775 ml # Bowel Movements 0 Physical Exam GENERAL: NAD, AAOx3 SKIN: Warm and dry. HEAD: Atraumatic. Normocephalic. EYES: Pupils equal and round. No scleral icterus. No injection or drainage. ENT: No nasal bleeding or discharge. Mucous membranes pink and moist. NECK: Trachea midline. No JVD. CARDIOVASCULAR: Regular rate and rhythm. RESPIRATORY: No accessory muscle use. Clear to auscultation. Breath sounds equal bilaterally. GASTROINTESTINAL: Abdomen soft, non-tender, nondistended. Hepatic and splenic margins not palpable. MUSCULOSKELETAL: Extremities without clubbing, cyanosis, or edema. No obvious deformities. Right radial no hematoma, neurovascularly intact distally NEUROLOGICAL: Awake and alert. No obvious cranial nerve deficits. Motor grossly within normal limits. Five out of 5 muscle strength in the arms and legs. Normal speech. PSYCHIATRIC: Appropriate mood and affect; insight and judgment normal. Laboratory Laboratory Tests Test 08/03/17 04:44 08/03/17 12:17 White Blood Count 6.9 TH/MM3 Red Blood Count 2.75 MIL/MM3 Hemoglobin 7.9 GM/DL 9.0 GM/DL Hematocrit 23.8 % 26.7 % Mean Corpuscular Volume 86.3 FL Mean Corpuscular Hemoglobin 28.7 PG Mean Corpuscular Hemoglobin Concent 33.3 % Red Cell Distribution Width 19.0 % Platelet Count 292 TH/MM3 Mean Platelet Volume 8.8 FL Activated Partial Thromboplast Time 41.8 SEC Blood Urea Nitrogen 10 MG/DL Creatinine 1.08 MG/DL Random Glucose 91 MG/DL Calcium Level 7.9 MG/DL Sodium Level 140 MEQ/L Potassium Level 4.1 MEQ/L Chloride Level 107 MEQ/L Carbon Dioxide Level 27.1 MEQ/L Anion Gap 6 MEQ/L Estimat Glomerular Filtration Rate 86 ML/MIN Triglycerides Level 79 MG/DL Cholesterol Level 157 MG/DL LDL Cholesterol 103 MG/DL HDL Cholesterol 38.6 MG/DL Cholesterol/HDL Ratio 4.06 RATIO Assessment and Plan Problem List: (1) NSTEMI (non-ST elevated myocardial infarction) ICD Codes: I21.4 - Non-ST elevation (NSTEMI) myocardial infarction (2) Tobacco abuse ICD Codes: Z72.0 - Tobacco use (3) Anemia ICD Codes: D64.9 - Anemia, unspecified (4) Cocaine abuse ICD Codes: F14.10 - Cocaine abuse, uncomplicated (5) Dehydration ICD Codes: E86.0 - Dehydration Assessment and Plan 1) NSTEMI s/p BMS (2.25x18) to OM2 2) ASA/Plavix/ABDI-I/Statin Not placed on BB therapy due to crack cocaine history Discussed importance of continuing ASA indefinitely and Plavix for at least 12 months 3) Echo pending, will have done before discharge 4) Cardiovascularly stable for discharge after echo 5) Social work consulted for help with discharge Ian Mckeon DO Aug 03, 2017 13:39
--- NOTE | 2017-08-03 14:17 | ECHRPT ---
Indication: NSTEMI CONCLUSIONS Normal left ventricular size and wall thickness. The left ventricular systolic function is normal wi th an estimated ejection fraction in the range of 55-60%. Normal wall motion. Normal wall motion. Trace mitral valve regurgitation. Trace aortic valve regurgitation. There is mild tricuspid valve regurgitation. There is estimated systolic pulmonary pressure is 40 mm Hg. BP: / HR: Rhythm: MEASUREMENTS (Male / Female) Normal Values Technical Quality:Good 2D ECHO LV Diastolic Diameter PLAX 5.1 cm 4.2 - 5.9 / 3.9 - 5.3 cm LV Systolic Diameter PLAX 4.1 cm IVS Diastolic Thickness 1.3 cm 0.6 - 1.0 / 0.6 - 0.9 cm LVPW Diastolic Thickness 0.6 cm 0.6 - 1.0 / 0.6 - 0.9 cm LV Relative Wall Thickness 0.4 RV Internal Dim ED PLAX 2.1 cm LA Systolic Diameter LX 3.5 cm 3.0 - 4.0 / 2.7 - 3.8 cm M-MODE Aortic Root Diameter MM 3.4 cm AV Cusp Separation MM 1.7 cm DOPPLER AV Peak Velocity 159.0 cm/s AV Peak Gradient 10.1 mmHg LVOT Peak Velocity 134.0 cm/s LVOT Peak Gradient 7.2 mmHg Mitral E Point Velocity 94.8 cm/s Mitral A Point Velocity 87.9 cm/s Mitral E to A Ratio 1.1 TR Peak Velocity 301.0 cm/s TR Peak Gradient 36.2 mmHg Right Atrial Pressure 5.0 mmHg Pulmonary Artery Systolic Pressu 41.2 mmHg Right Ventricular Systolic Press 41.2 mmHg FINDINGS LEFT VENTRICLE Normal left ventricular size and wall thickness. The left ventricular systolic function is normal wi th an estimated ejection fraction in the range of 55-60%. Normal wall motion. Normal wall motion. RIGHT VENTRICLE Normal right ventricular size and systolic function. LEFT ATRIUM The left atrial size is normal. RIGHT ATRIUM The right atrial size is normal. ATRIAL SEPTUM Normal atrial septal thickness without atrial level shunting by limited color doppler interrogation. AORTA The aortic root and proximal ascending aorta are normal in size on limited imaging. MITRAL VALVE Trace mitral valve regurgitation. AORTIC VALVE Trace aortic valve regurgitation. TRICUSPID VALVE There is mild tricuspid valve regurgitation. There is estimated systolic pulmonary pressure is 40 mm Hg. PULMONARY VALVE No pulmonary valve regurgitation or stenosis. VESSELS The inferior vena cava is normal in size. PERICARDIUM No pericardial effusion. Lázaro Calix MD (Electronically Signed) Final Date:03 August 2017 14:15
== END 2017-08-03 16:25 | disposition home or self-care (01) | DRG 249 ==
LOC: NEPE 20:05 → NEDA 22:10 → HIMW 23:40 → HCPC 08-02 10:26
PROVIDERS: ADMIT Internal Medicine; ATTEND Internal Medicine
PROC: 02703DZ Dilation of Coronary Artery, One Artery with Intraluminal Device, Percutaneous Approach (ICD-10-PCS; 2017-08-02)
PROC: B2111ZZ Fluoroscopy of Multiple Coronary Arteries using Low Osmolar Contrast (ICD-10-PCS; 2017-08-02)
PROC: B2151ZZ Fluoroscopy of Left Heart using Low Osmolar Contrast (ICD-10-PCS; 2017-08-02)
PROC: 4A023N7 Measurement of Cardiac Sampling and Pressure, Left Heart, Percutaneous Approach (ICD-10-PCS; principal; 2017-08-02 10:00)
DX: I21.4 Non-ST elevation (NSTEMI) myocardial infarction (principal); I10 Essential (primary) hypertension; E86.0 Dehydration; I25.119 Atherosclerotic heart disease of native coronary artery with unspecified angina pectoris; D57.3 Sickle-cell trait; F14.10 Cocaine abuse, uncomplicated; K59.00 Constipation, unspecified; Z95.5 Presence of coronary angioplasty implant and graft; F17.290 Nicotine dependence, other tobacco product, uncomplicated
CPT/HCPCS: 71010; 80048; 80053; 80061; 80307; 81001; 82550; 82552; 82728; 83540; 83550; 83690; 83735; 84484; 85002; 85014; 85018; 85025; 85027; 85610; 85730; 87641; 92928; 93005; 93306; 93458; 96374; 99152; 99153; C1725; C1769; C1876; C1887; C1893; J1644; J2250; J2405; J3010; J7030; Q9967

== ENCOUNTER 2017-08-17 12:19 | Emergency (ER) | payer SELFPAY ==
[~2017-08-17 12:19] MED LIST changes: +ASPI81 PO; +ATOR80TA45 PO; -CYCL-36 PO; +LISI-519 PO; -NAPR550 PO; +NITR1SUB3 SL; +PLAV75TA29 PO; -Z.0.NO CURRENT MEDS
[2017-08-17 12:21] VITALS: BP 113/65; PULSE 75; RESP 16; TEMP 97.9; O2SAT 96
--- NOTE | 2017-08-17 14:35 | RADRPT ---
EXAM DATE/TIME: 08/17/2017 13:24 [facility] COMPARISON: No previous studies available for comparison. INDICATIONS : Right arm pain. MEDICAL HISTORY : Hypertension. Sickle cell trait. SURGICAL HISTORY : Cardiac catheterization. ENCOUNTER: Initial ACUITY: 2 weeks PAIN SCORE: 5/10 LOCATION: Right arm. FINDINGS: There is spontaneous flow documented in the brachial, basilic, cephalic, axillary, and subclavian vei ns. The vessels are compressible and augmentation response is documented. No filling defects are se en. The flow is phasic with respiration. Direction of flow in the jugular vein is caudal. CONCLUSION: 1. No sonographic evidence for upper extremity DVT. Reji Starkey MD on August 17, 2017 at 14:31 Board Certified Radiologist. This report was verified electronically.
--- NOTE | 2017-08-17 14:46 | PD ---
HPI Chief Complaint: Musculoskeletal Complaint Time Seen by Provider: 12:53 Travel History International Travel<30 days: No Contact w/Intl Traveler<30days: No Traveled to known affect area: No History of Present Illness HPI 57-year-old male complains of right arm pain. 2 weeks underwent cardiac catheterization. Access was through the right radial artery. He denies numbness tingling. He reports dropping a box today. The pains primarily around the region of the distal biceps. No shortness of breath or chest pain. He reports strict compliance with all his medications. No interval injury. No swelling reported. PFSH Past Medical History Autoimmune Disease: Yes (SICKLE CELL TRAIT) Cancer: No Cardiovascular Problems: Yes (HTN) Chest Pain: Yes (06/30/17) Endocrine: No Gastrointestinal Disorders: No Genitourinary: No Hypertension: Yes Implanted Vascular Access Dvce: No Musculoskeletal: No Neurologic: No Psychiatric: No Reproductive: No Respiratory: No Past Surgical History Other Surgery: No Social History Alcohol Use: No Tobacco Use: Yes (5 CIGARS/DAY) Substance Use: Yes (last wednesday in cigar crack) Allergies-Medications (Allergen,Severity, Reaction): Coded Allergies: No Known Allergies (Verified Allergy, Mild, 08/17/17) Reported Meds & Prescriptions Reported Meds & Active Scripts Active Nitroglycerin SL (Nitroglycerin) 0.4 Mg Subl 0.4 Mg SL DIRECTED PRN ONE TABLET UNDER THE TONGUE NEEDED FOR CHEST PAIN, MAY REPEAT EVERY FIVE MINUTES FOR A TOTAL OF 3 DOSES OR CALL 911 IF NO RELIEF Tgt Aspirin (Aspirin) 81 Mg Chw 81 Mg PO DAILY 30 Days Lisinopril 5 Mg Tab 5 Mg PO DAILY 30 Days Atorvastatin (Atorvastatin Calcium) 80 Mg Tab 80 Mg PO HS 30 Days Plavix (Clopidogrel Bisulfate) 75 Mg Tab 75 Mg PO DAILY 30 Days Review of Systems Except as stated in HPI: all other systems reviewed are Neg General / Constitutional: No: Fever Cardiovascular: No: Chest Pain or Discomfort Respiratory: No: Cough, Shortness of Breath Physical Exam Narrative GENERAL: Well-nourished well-developed 37-year-old male pleasant SKIN: Warm and dry. HEAD: Atraumatic. Normocephalic. EYES: Pupils equal and round. No scleral icterus. No injection or drainage. ENT: No nasal bleeding or discharge. Mucous membranes pink and moist. NECK: Trachea midline. No JVD. CARDIOVASCULAR: Regular rate and rhythm. RESPIRATORY: No accessory muscle use. Clear to auscultation. Breath sounds equal bilaterally. GASTROINTESTINAL: Abdomen soft, non-tender, nondistended. Hepatic and splenic margins not palpable. MUSCULOSKELETAL: Extremities without clubbing, cyanosis, or edema. No obvious deformities. No swelling about the right upper extremity. 2+ radial artery pulses bilaterally. Hand wreath maker is equal although does elicit some pain on the right side. There is minimal tenderness about the distal biceps. NEUROLOGICAL: Awake and alert. No obvious cranial nerve deficits. Motor grossly within normal limits. Five out of 5 muscle strength in the arms and legs. Normal speech. PSYCHIATRIC: Appropriate mood and affect; insight and judgment normal. Data Data Last Documented VS Vital Signs Date Time Temp Pulse Resp B/P (MAP) Pulse Ox O2 Delivery O2 Flow Rate FiO2 08/17/17 12:21 97.9 75 16 113/65 (81) 96 Vital signs reviewed Orders Orders Us Arm Venous Doppler (08/17/17 ) MDM Medical Decision Making Medical Screen Exam Complete: Yes Emergency Medical Condition: Yes Medical Record Reviewed: Yes Differential Diagnosis DVT, arterial obstruction, neuropathy Narrative Course Last 24 hours Impressions Upper Extremity Ultrasound 08/17/17 0000 Signed Impressions: Service Date/Time: Thursday, August 17, 2017 13:24 - CONCLUSION: 1. No sonographic evidence for upper extremity DVT. Reji Starkey MD Exam is normal and the imaging is unremarkable. The patient ready for discharge. Diagnosis Primary Impression: Right arm pain Med/Other Pt SpecificInfo: No Change to Meds Disposition: 01 DISCHARGE HOME Condition: Stable Ronnell Mckeon MD Aug 17, 2017 14:46
[2017-08-17 15:28] VITALS: BP 121/62
== END 2017-08-17 15:29 | disposition home or self-care (01) ==
LOC: NEPD 12:19
DX: M79.601 Pain in right arm (principal); D57.3 Sickle-cell trait; I10 Essential (primary) hypertension; F17.290 Nicotine dependence, other tobacco product, uncomplicated
CPT/HCPCS: 93971; 99284

== ENCOUNTER 2018-02-09 14:35 | Observation (INO) | payer SELFPAY ==
[~2018-02-09] VITALS: Ht 180.3 cm; Wt 63.5 kg
[2018-02-09] VITALS (7 sets, daily range): BP systolic 150–212; BP diastolic 77–97; PULSE 56–68; RESP 14–25; TEMP 98–98.3; O2SAT 94–100
--- NOTE | 2018-02-09 15:50 | RADRPT ---
EXAM DATE: 02/09/2018 3:47 PM EDT AGE/SEX: 57 years / Male INDICATIONS: Left side chest pain. CLINICAL DATA: This is the patient's initial encounter. Patient reports that signs and symptoms have been present for 2 days and indicates a pain score of 5/10. MEDICAL/SURGICAL HISTORY: . high blood pressure, smokes, 3 heart attacks 07/2017 Coronary mary carmen ry stent. COMPARISON: [facility] – [place], [place], CHEST SINGLE AP, 07/31/2017. . FINDINGS: PA and lateral views of the chest demonstrate the lungs to be symmetrically aerated without evidence of mass, infiltrate or effusion. The cardiomediastinal contours are unremarkable. Osseous structures are intact. CONCLUSION: Negative examination. Electronically signed by: Cory Salas MD 02/09/2018 3:49 PM EDT
[2018-02-09] MEDS ORDERED: SODIUM CHLORIDE 0.9% FLUSH 10 ML FLUSH IVF PRN (16:15)
[2018-02-09] MEDS ORDERED: MORPHINE SULFATE 4 MG/ML INJ IV PUSH ONE (16:15)
[2018-02-09] MEDS ORDERED: NITROGLYCERIN 2% OINT 1 GM PACKET TOP ONE (16:15)
[2018-02-09 16:25] LABS: AUTOMATED NEUTROPHIL # 3.1 TH/MM3 (1.8-7.7); BASOPHIL % 0.3 % (0.0-2.0); EOSINOPHIL # 0.2 TH/MM3 (0-0.4); EOSINOPHIL % 3.4 % (0.0-4.0); HEMATOCRIT 32.2 % (39.0-51.0); HEMOGLOBIN 10.5 GM/DL (13.0-17.0); LYMPH % 32.4 % (9.0-44.0); LYMPHOCYTE # 1.9 TH/MM3 (1.0-4.8); MEAN CORPUSCULAR HEMOGLOBIN 28.1 PG (27.0-34.0); MEAN CORPUSCULAR HGB CONC 32.7 % (32.0-36.0); MEAN PLATELET VOLUME 8.5 FL (7.0-11.0); MONO % 11.2 % (0.0-8.0); MONOCYTE # 0.7 TH/MM3 (0-0.9); NEUT % 52.7 % (16.0-70.0); PLATELET COUNT 210 TH/MM3 (150-450); RED BLOOD COUNT 3.74 MIL/MM3 (4.50-5.90); RED CELL DISTRIBUTION WIDTH 23.3 % (11.6-17.2); WHITE BLOOD COUNT 5.9 TH/MM3 (4.0-11.0)
[2018-02-09 16:38] LABS: PROTHROMBIN TIME - PATIENT 10.6 SEC (9.8-11.6)
[2018-02-09 16:40] LABS: BICARBONATE 25.8 MEQ/L (21.0-32.0); BLOOD UREA NITROGEN 13 MG/DL (7-18); CALCIUM 8.8 MG/DL (8.5-10.1); CHLORIDE 107 MEQ/L (98-107); CREATININE 1.16 MG/DL (0.60-1.30); GLOMERULAR FILTRATION RATE 79 ML/MIN (>89); GLUCOSE,RANDOM 76 MG/DL (74-106); SODIUM (NA) 142 MEQ/L (136-145)
[2018-02-09 16:44] LABS: TROPONIN I LESS THAN 0.02 NG/ML (0.02-0.05)
--- NOTE | 2018-02-09 16:56 | PD ---
HPI Chief Complaint: Chest Pain Time Seen by Provider: 15:57 Travel History International Travel<30 days: No Contact w/Intl Traveler<30days: No Traveled to known affect area: No History of Present Illness HPI Patient is a 57-year-old male presenting to the emergency department for evaluation of chest pain. Patient states started 2 AM this morning, it was midsternal and left anterior chest wall with radiation to both arms. Patient states when the pain started he became diaphoretic and dizzy and felt as if he was going to pass out. Patient took a nitroglycerin tablet and reported that the pain improved. He then went back to sleep but awoke with the pain a few hours later. Patient states that he is trying to walk around but that made the pain worse. He currently reports the pain is a 3-4 out of 10. Pressure-like and dull. He continues to radiate to both arms and is accompanied by shortness of breath. Patient reports a history of a heart attack in July 2017. He states he has not been compliant with his cholesterol medications because he has no primary doctor. He does report taking lisinopril daily as well as a baby aspirin. Symptom onset was sudden and symptoms are moderate in nature, symptoms were partially alleviated with nitroglycerin and rest, exacerbated with movement. Patient does report a history of crack cocaine use. PFSH Past Medical History Cancer: No Cardiac Catheterization: Yes High Cholesterol: Yes Chest Pain: Yes (06/30/17) Coronary Artery Disease: Yes Hypertension: Yes Immunizations Current: Yes Myocardial Infarction: Yes Sickle Cell Disease: Yes Tetanus Vaccination: Unknown Influenza Vaccination: No Past Surgical History Coronary Stent: Yes Other Surgery: No Social History Alcohol Use: No Tobacco Use: Yes (5 CIGARS/DAY) Substance Use: Yes (COCAINE Last use : 2 days ago ) Allergies-Medications (Allergen,Severity, Reaction): Coded Allergies: No Known Allergies (Verified Allergy, Mild, 02/09/18) Reported Meds & Prescriptions Reported Meds & Active Scripts Active Nitroglycerin SL (Nitroglycerin) 0.4 Mg Subl 0.4 Mg SL DIRECTED PRN ONE TABLET UNDER THE TONGUE NEEDED FOR CHEST PAIN, MAY REPEAT EVERY FIVE MINUTES FOR A TOTAL OF 3 DOSES OR CALL 911 IF NO RELIEF Tgt Aspirin (Aspirin) 81 Mg Chw 81 Mg PO DAILY 30 Days Lisinopril 5 Mg Tab 5 Mg PO DAILY 30 Days Atorvastatin (Atorvastatin Calcium) 80 Mg Tab 80 Mg PO HS 30 Days Plavix (Clopidogrel Bisulfate) 75 Mg Tab 75 Mg PO DAILY 30 Days Review of Systems Except as stated in HPI: all other systems reviewed are Neg General / Constitutional: No: Fever Eyes: No: Blurred Vision HENT: Positive: Lightheadedness, No: Headaches Cardiovascular: Positive: Chest Pain or Discomfort, Diaphoresis, Syncope, Dyspnea on exertion Respiratory: Positive: Shortness of Breath Gastrointestinal: No: Nausea, Abdominal Pain Neurologic: Positive: Dizziness, No: Weakness Physical Exam Narrative GENERAL: Thin, well-developed, alert -[place] male. Presenting in no acute distress. SKIN: Warm and dry. HEAD: Atraumatic. Normocephalic. EYES: Pupils equal and round. No scleral icterus. No injection or drainage. ENT: No nasal bleeding or discharge. Mucous membranes pink and moist. NECK: Trachea midline. No JVD. CARDIOVASCULAR: Regular rate and rhythm. RESPIRATORY: No accessory muscle use. Clear to auscultation. Breath sounds equal bilaterally. GASTROINTESTINAL: Abdomen soft, non-tender, nondistended. Hepatic and splenic margins not palpable. MUSCULOSKELETAL: Extremities without clubbing, cyanosis, or edema. No obvious deformities. NEUROLOGICAL: Awake and alert. No obvious cranial nerve deficits. Motor grossly within normal limits. Five out of 5 muscle strength in the arms and legs. Normal speech. PSYCHIATRIC: Appropriate mood and affect; insight and judgment normal. Data Data Last Documented VS Vital Signs Date Time Temp Pulse Resp B/P (MAP) Pulse Ox O2 Delivery O2 Flow Rate FiO2 02/09/18 16:20 63 18 185/97 (126) 99 Nasal Cannula 2.00 02/09/18 14:48 98.3 Orders Orders Electrocardiogram (02/09/18 14:49) Complete Blood Count With Diff (02/09/18 14:49) Basic Metabolic Panel (Bmp) (02/09/18 14:49) Ckmb (Isoenzyme) Profile (02/09/18 14:49) Troponin I (02/09/18 14:49) Iv Access Insert/Monitor (02/09/18 14:49) Ecg Monitoring (02/09/18 14:49) Oxygen Administration (02/09/18 14:49) Oximetry (02/09/18 14:49) Prothrombin Time / Inr (Pt) (02/09/18 14:49) Chest, Pa & Lat (02/09/18 14:49) Hepatic Functional Panel (02/09/18 16:02) Lipase (02/09/18 16:02) Magnesium (Mg) (02/09/18 16:02) Morphine Inj (Morphine Inj) (02/09/18 16:15) Nitroglycerin 2% Oint (Nitroglycerin 2% (02/09/18 16:15) Sodium Chloride 0.9% Flush (Ns Flush) (02/09/18 16:15) CKMB (02/09/18 15:36) CKMB% (02/09/18 15:36) Drug Screen, Random Urine (02/09/18 16:44) Labs Laboratory Tests Test 02/09/18 15:36 White Blood Count 5.9 TH/MM3 Red Blood Count 3.74 MIL/MM3 Hemoglobin 10.5 GM/DL Hematocrit 32.2 % Mean Corpuscular Volume 86.0 FL Mean Corpuscular Hemoglobin 28.1 PG Mean Corpuscular Hemoglobin Concent 32.7 % Red Cell Distribution Width 23.3 % Platelet Count 210 TH/MM3 Mean Platelet Volume 8.5 FL Neutrophils (%) (Auto) 52.7 % Lymphocytes (%) (Auto) 32.4 % Monocytes (%) (Auto) 11.2 % Eosinophils (%) (Auto) 3.4 % Basophils (%) (Auto) 0.3 % Neutrophils # (Auto) 3.1 TH/MM3 Lymphocytes # (Auto) 1.9 TH/MM3 Monocytes # (Auto) 0.7 TH/MM3 Eosinophils # (Auto) 0.2 TH/MM3 Basophils # (Auto) 0.0 TH/MM3 CBC Comment DIFF FINAL Differential Comment Prothrombin Time 10.6 SEC Prothromb Time International Ratio 1.0 RATIO Blood Urea Nitrogen 13 MG/DL Creatinine 1.16 MG/DL Random Glucose 76 MG/DL Calcium Level 8.8 MG/DL Sodium Level 142 MEQ/L Potassium Level 4.0 MEQ/L Chloride Level 107 MEQ/L Carbon Dioxide Level 25.8 MEQ/L Anion Gap 9 MEQ/L Estimat Glomerular Filtration Rate 79 ML/MIN Total Creatine Kinase 143 U/L Troponin I LESS THAN 0.02 NG/ML MDM Medical Decision Making Medical Screen Exam Complete: Yes Emergency Medical Condition: Yes Interpretation(s) Vital Signs Date Time Temp Pulse Resp B/P (MAP) Pulse Ox O2 Delivery O2 Flow Rate FiO2 02/09/18 16:20 63 18 185/97 (126) 99 Nasal Cannula 2.00 02/09/18 16:13 100 Nasal Cannula 2.00 02/09/18 16:02 67 18 212/95 (134) 98 Room Air 02/09/18 15:52 27 99 Room Air 02/09/18 14:48 98.3 68 16 158/77 (104) 100 Differential Diagnosis ACS versus [place] versus metabolic abnormality versus substance abuse versus pleurisy versus other Narrative Course Patient is a 57-year-old male who is currently well-appearing presenting for evaluation of chest pain. Patient has a history of [place] with cardiac cath in July 2017. Patient reported current crack cocaine use. Patient is hypertensive on arrival, morphine and nitroglycerin paste ordered. Labs and imaging ordered and pending. Chest x-ray shows no acute disease CBC with a mild anemia of 10.5/32.2, this is improved when compared to prior results. Chemistry with no acute findings Cardiac enzymes are negative 1 set Blood pressure has trended down after nitroglycerin paste was applied. Patient is currently resting comfortably. He was also seen and evaluated by my attending physician. Patient will be admitted to the chest pain center at this time. Diagnosis Primary Impression: Chest pain Qualified Codes: R07.9 - Chest pain, unspecified Additional Impression: Cocaine abuse Admitting Information Admitting Physician Requests: Observation Condition: Stable Iram Shearer Feb 09, 2018 16:56
[2018-02-09 17:47] LABS: ALBUMIN 3.8 GM/DL (3.4-5.0); ALT (GPT) 14 U/L (12-78); AST (GOT) 12 U/L (15-37); DIRECT BILIRUBIN ADULT LESS THAN 0.1 MG/DL (0.0-0.2); MAGNESIUM 2.2 MG/DL (1.5-2.5)
[2018-02-09 17:49] LABS: ALKALINE PHOSPHATASE 80 U/L (45-117); TOTAL BILIRUBIN ADULT 0.1 MG/DL (0.2-1.0); TOTAL PROTEIN 7.4 GM/DL (6.4-8.2)
[2018-02-09] MEDS ORDERED: ACETAMINOPHEN 500 MG CPLT PO PRN (19:30)
[2018-02-09] MEDS ORDERED: MORPHINE SULFATE 4 MG/ML INJ IV PUSH PRN (19:30)
[2018-02-09] MEDS ORDERED: SODIUM CHLORIDE 0.9% FLUSH 10 ML FLUSH IV FLUSH PRN (19:30)
--- NOTE | 2018-02-09 19:32 | PD ---
Physical Exam Date Seen by Provider: Feb 09, 2018 Time Seen by Provider: 17:30 Narrative I, Dr. Conti, have reviewed the advance practice practitioner's documentation and am in agreement, met with the patient face to face, made the diagnosis, and the medical decision making was done by me. *My assessment and Findings: Patient seen and evaluated with PA, please see PA notes for further details. Has previous history of CAD with stenting, uses crack cocaine, and is here with several days of chest pains. EKG and cardiac enzymes are unremarkable. Cardiac and pulmonary exams are unremarkable. However, considering his history, plan would be to admit him for further evaluation of his heart. Laboratory Tests Test 02/09/18 15:36 Red Blood Count 3.74 MIL/MM3 (4.50-5.90) Hemoglobin 10.5 GM/DL (13.0-17.0) Hematocrit 32.2 % (39.0-51.0) Red Cell Distribution Width 23.3 % (11.6-17.2) Monocytes (%) (Auto) 11.2 % (0.0-8.0) Aspartate Amino Transf (AST/SGOT) 12 U/L (15-37) Total Bilirubin 0.1 MG/DL (0.2-1.0) Estimat Glomerular Filtration Rate 79 ML/MIN (>89) Troponin I LESS THAN 0.02 NG/ML Last 24 hours Impressions Chest X-Ray 02/09/18 1449 Signed Impressions: CONCLUSION: Negative examination. Data Data Last Documented VS Vital Signs Date Time Temp Pulse Resp B/P (MAP) Pulse Ox O2 Delivery O2 Flow Rate FiO2 02/09/18 16:20 63 18 185/97 (126) 99 Nasal Cannula 2.00 02/09/18 14:48 98.3 Orders Orders Electrocardiogram (02/09/18 14:49) Complete Blood Count With Diff (02/09/18 14:49) Basic Metabolic Panel (Bmp) (02/09/18 14:49) Ckmb (Isoenzyme) Profile (02/09/18 14:49) Troponin I (02/09/18 14:49) Iv Access Insert/Monitor (02/09/18 14:49) Ecg Monitoring (02/09/18 14:49) Oxygen Administration (02/09/18 14:49) Oximetry (02/09/18 14:49) Prothrombin Time / Inr (Pt) (02/09/18 14:49) Chest, Pa & Lat (02/09/18 14:49) Morphine Inj (Morphine Inj) (02/09/18 16:15) Nitroglycerin 2% Oint (Nitroglycerin 2% (02/09/18 16:15) Sodium Chloride 0.9% Flush (Ns Flush) (02/09/18 16:15) CKMB (02/09/18 15:36) CKMB% (02/09/18 15:36) Drug Screen, Random Urine (02/09/18 16:44) Admit Order (Ed Use Only) (02/09/18 16:56) Hepatic Functional Panel (02/09/18 15:36) Lipase (02/09/18 15:36) Magnesium (Mg) (02/09/18 15:36) Labs Laboratory Tests Test 02/09/18 15:36 White Blood Count 5.9 TH/MM3 Red Blood Count 3.74 MIL/MM3 Hemoglobin 10.5 GM/DL Hematocrit 32.2 % Mean Corpuscular Volume 86.0 FL Mean Corpuscular Hemoglobin 28.1 PG Mean Corpuscular Hemoglobin Concent 32.7 % Red Cell Distribution Width 23.3 % Platelet Count 210 TH/MM3 Mean Platelet Volume 8.5 FL Neutrophils (%) (Auto) 52.7 % Lymphocytes (%) (Auto) 32.4 % Monocytes (%) (Auto) 11.2 % Eosinophils (%) (Auto) 3.4 % Basophils (%) (Auto) 0.3 % Neutrophils # (Auto) 3.1 TH/MM3 Lymphocytes # (Auto) 1.9 TH/MM3 Monocytes # (Auto) 0.7 TH/MM3 Eosinophils # (Auto) 0.2 TH/MM3 Basophils # (Auto) 0.0 TH/MM3 CBC Comment DIFF FINAL Differential Comment Prothrombin Time 10.6 SEC Prothromb Time International Ratio 1.0 RATIO Blood Urea Nitrogen 13 MG/DL Creatinine 1.16 MG/DL Random Glucose 76 MG/DL Total Protein 7.4 GM/DL Albumin 3.8 GM/DL Calcium Level 8.8 MG/DL Magnesium Level 2.2 MG/DL Alkaline Phosphatase 80 U/L Aspartate Amino Transf (AST/SGOT) 12 U/L Alanine Aminotransferase (ALT/SGPT) 14 U/L Total Bilirubin 0.1 MG/DL Direct Bilirubin LESS THAN 0.1 MG/DL Sodium Level 142 MEQ/L Potassium Level 4.0 MEQ/L Chloride Level 107 MEQ/L Carbon Dioxide Level 25.8 MEQ/L Anion Gap 9 MEQ/L Estimat Glomerular Filtration Rate 79 ML/MIN Indirect Bilirubin 0.0 MG/DL Total Creatine Kinase 143 U/L Creatine Kinase MB 1.1 NG/ML Troponin I LESS THAN 0.02 NG/ML Lipase 188 U/L [facility] Medical Record Reviewed: Yes Supervised Visit with CHETAN: Yes Diagnosis Primary Impression: Chest pain Qualified Codes: R07.9 - Chest pain, unspecified Additional Impression: Cocaine abuse Admitting Information Admitting Physician Requests: Admit Condition: Stable Andrea Conti MD Feb 09, 2018 19:32
[2018-02-09 20:31] LABS: TROPONIN I 0.02 NG/ML (0.02-0.05)
[2018-02-09] MEDS: SODIUM CHLOR 0.9% 1000 ML INJ 1,000 ML IV SCH (22:10)
[2018-02-09] MEDS: SODIUM CHLORIDE 0.9% FLUSH 10 ML FLUSH IV FLUSH SCH (22:10)
[2018-02-09 22:46] LABS: TROPONIN I LESS THAN 0.02 NG/ML (0.02-0.05)
[2018-02-10] VITALS (7 sets, daily range): BP systolic 133–146; BP diastolic 70–78; PULSE 56–67; RESP 16–18; TEMP 98.2–98.6; O2SAT 96–100
[2018-02-10] MEDS: NITROGLYCERIN 2% OINT 1 GM PACKET TOP SCH ×2 (00:18→05:51)
[2018-02-10] MEDS: SODIUM CHLOR 0.9% 1000 ML INJ 1,000 ML IV SCH ×2 (05:20→09:06)
[2018-02-10] MEDS ORDERED: PANTOPRAZOLE SOD 40 MG DELAYED RELEASE TAB PO SCH (09:00)
[2018-02-10] MEDS ORDERED: ASPIRIN 325 MG TAB PO SCH (09:00)
[2018-02-10] MEDS: SODIUM CHLORIDE 0.9% FLUSH 10 ML FLUSH IV FLUSH SCH (09:07)
[2018-02-10] MEDS ORDERED: amLODIPine BESYLATE 5 MG TAB PO SCH (09:15)
[2018-02-10] MEDS ORDERED: LISINOPRIL 5 MG TAB PO SCH (09:15)
[2018-02-10] MEDS ORDERED: CLOPIDOGREL 75 MG TAB PO SCH (09:15)
--- NOTE | 2018-02-10 09:16 | PD.CARD.PN ---
Subjective Subjective Remarks The patient's medical records were reviewed the patient was seen and examined personally. Was then discussed with the physician shot man. As documented pain he currently had was entirely different from the pain he had with his previous non-STEMI. This event may have been associated with use of cocaine. The pain has resolved entirely at this time. After considerable discussion the patient is cognizant of the fact that he needs to have a significant change of lifestyle. He indicates a sincere interest in doing so and has even gone to christianity recently. He is aware that he needs to stop cocaine and smoking and become compliant with his medical care. He will be evaluated at this time for any ongoing ischemia with a nuclear stress test. If negative he will be discharged to reestablish medical follow-up and help with his addiction if needed. Objective Medications Current Medications Medications (Trade) Dose Ordered Sig/Charlie Route Start Time Stop Time Status Last Admin (NS Flush) 2 ml UNSCH PRN IVF 02/09/18 16:15 02/09/18 16:17 Sodium Chloride 1,000 ml @ 100 mls/hr Q10H IV 02/09/18 19:20 02/09/18 22:10 (NS Flush) 2 ml UNSCH PRN IV FLUSH 02/09/18 19:30 (NS Flush) 2 ml BID IV FLUSH 02/09/18 21:00 02/09/18 22:10 (Tylenol) 500 mg Q4H PRN PO 02/09/18 19:30 02/10/18 01:29 (Morphine Inj) 2 mg Q4H PRN IV PUSH 02/09/18 19:30 (Protonix) 40 mg DAILY PO 02/10/18 09:00 (Nitroglycerin 2% Oint) 1 inch Q6HR TOP 02/10/18 00:00 (Aspirin) 325 mg DAILY PO 02/10/18 09:00 Vital Signs / I&O Vital Signs Date Time Temp Pulse Resp B/P (MAP) Pulse Ox O2 Delivery O2 Flow Rate FiO2 02/10/18 08:53 100 21 02/10/18 07:39 98.4 63 18 145/78 (100) 100 02/10/18 04:53 98.2 61 16 133/76 (95) 99 02/10/18 04:19 56 02/10/18 00:37 98.6 65 16 146/70 (95) 96 02/10/18 00:31 67 02/09/18 21:11 61 02/09/18 20:56 98.0 56 16 150/86 (107) 100 02/09/18 20:02 56 14 165/85 (111) 94 Nasal Cannula 02/09/18 17:15 56 25 175/79 (111) 98 Nasal Cannula 2.00 02/09/18 16:20 63 18 185/97 (126) 99 Nasal Cannula 2.00 02/09/18 16:13 100 Nasal Cannula 2.00 02/09/18 16:02 67 18 212/95 (134) 98 Room Air 02/09/18 15:52 27 99 Room Air 02/09/18 14:48 98.3 68 16 158/77 (104) 100 I/O 02/09/18 02/09/18 02/09/18 02/10/18 02/10/18 02/10/18 07:00 15:00 23:00 07:00 15:00 23:00 Output Total 250 ml Balance -250 ml Output Urine Total 250 ml # Voids 1 Physical Exam HEENT other than slightly injected sclera and mild arcus is unremarkable Chest diminished breath sounds with rhonchi in the bases that clear with coughing Cardiovascular regular sinus rhythm with no gallop rub or murmur Abdomen is slightly tender in the right upper quadrant but no masses are noted and there is no guarding or rebound Extremities no clubbing cyanosis or edema Laboratory Laboratory Tests Test 02/09/18 15:36 02/09/18 18:00 02/09/18 19:40 02/09/18 22:08 White Blood Count 5.9 TH/MM3 Red Blood Count 3.74 MIL/MM3 Hemoglobin 10.5 GM/DL Hematocrit 32.2 % Mean Corpuscular Volume 86.0 FL Mean Corpuscular Hemoglobin 28.1 PG Mean Corpuscular Hemoglobin Concent 32.7 % Red Cell Distribution Width 23.3 % Platelet Count 210 TH/MM3 Mean Platelet Volume 8.5 FL Neutrophils (%) (Auto) 52.7 % Lymphocytes (%) (Auto) 32.4 % Monocytes (%) (Auto) 11.2 % Eosinophils (%) (Auto) 3.4 % Basophils (%) (Auto) 0.3 % Neutrophils # (Auto) 3.1 TH/MM3 Lymphocytes # (Auto) 1.9 TH/MM3 Monocytes # (Auto) 0.7 TH/MM3 Eosinophils # (Auto) 0.2 TH/MM3 Basophils # (Auto) 0.0 TH/MM3 CBC Comment DIFF FINAL Differential Comment Prothrombin Time 10.6 SEC Prothromb Time International Ratio 1.0 RATIO Blood Urea Nitrogen 13 MG/DL Creatinine 1.16 MG/DL Random Glucose 76 MG/DL Total Protein 7.4 GM/DL Albumin 3.8 GM/DL Calcium Level 8.8 MG/DL Magnesium Level 2.2 MG/DL Alkaline Phosphatase 80 U/L Aspartate Amino Transf (AST/SGOT) 12 U/L Alanine Aminotransferase (ALT/SGPT) 14 U/L Total Bilirubin 0.1 MG/DL Direct Bilirubin LESS THAN 0.1 MG/DL Sodium Level 142 MEQ/L Potassium Level 4.0 MEQ/L Chloride Level 107 MEQ/L Carbon Dioxide Level 25.8 MEQ/L Anion Gap 9 MEQ/L Estimat Glomerular Filtration Rate 79 ML/MIN Indirect Bilirubin 0.0 MG/DL Total Creatine Kinase 143 U/L 123 U/L 121 U/L Creatine Kinase MB 1.1 NG/ML 1.1 NG/ML 1.2 NG/ML Troponin I LESS THAN 0.02 NG/ML 0.02 NG/ML LESS THAN 0.02 NG/ML Lipase 188 U/L Urine Opiates Screen NEG Urine Barbiturates Screen NEG Urine Amphetamines Screen NEG Urine Benzodiazepines Screen NEG Urine Cocaine Screen POS Urine Cannabinoids Screen NEG Imaging Last 24 hours Impressions Chest X-Ray 02/09/18 1449 Signed Impressions: CONCLUSION: Negative examination. Assessment and Plan Assessment and Plan Rule out with chest pain center protocol and if negative evaluate with a nuclear stress test. Discussed Condition With Discussed fairly extensively with the patient and with physician shot man Elvin Goff MD Feb 10, 2018 09:16
--- NOTE | 2018-02-10 09:47 | HHI.HP ---
HPI Primary Care Physician No Primary Care Physician Chief Complaint Chest pain History of Present Illness This is a 57-year-old male the presents to ED via private vehicle with a complaint of chest discomfort that has been intermittent essentially for 6 months. Has history of a non-STEMI and had bare-metal stent placed to the second obtuse marginal July 2017. States that he did have essentially relief of symptoms for a month. He ran out of his medications and did not fill them. Since then he has been having intermittent discomforts. He states the discomfort are different than the symptoms that brought him to the ED during his non-STEMI. At that time he had a squeezing discomfort. Currently he has intermittent tightness. States is random. Not brought on by any particular activity. He at times short of breath. No nausea or diaphoresis. He has not followed up with treasury specialist since his heart catheterization. Continues to smoke cigars. Continues to smoke crack cocaine 3 times a week on average. Review of Systems General: Patient denies fevers, chills recent, and recent travel HEENT: Patient denies headache, sore throat, difficulty swallowing. Cardiovascular: Has the chest discomfort as mentioned above. Denies sensation of heart beating rapidly or irregularly. No syncope. Denies diaphoresis. Respiratory: Occasional shortness of breath. Denies inspirational chest discomfort. Denies coughing wheezing or hemoptysis. GI: Patient denies nausea, vomiting, diarrhea, abdominal pain, bloody stools. Musculoskeletal: Patient denies joint pain or edema. Denies calf pain or edema. Neurovascular: Patient denies numbness, tingling, weakness in extremities. Denies headache. Endocrine: Denies polyuria and polydipsia. Hematologic: Denies easy bruising. Skin: Denies rash or itching. Past Family Social History Allergies: Coded Allergies: No Known Allergies (Verified Allergy, Mild, 02/09/18) Past Medical History Non-STEMI with stent applied to the second obtuse marginal July 2017. Noncompliance of medication. His hypertension, hyperlipidemia, tobacco abuse. History of also cocaine abuse and continues to abuse cocaine. Past Surgical History Cardiac catheterization with stent placement July 2017. Reported Medications Reported Meds & Active Scripts Active Nitroglycerin SL (Nitroglycerin) 0.4 Mg Subl 0.4 Mg SL DIRECTED PRN ONE TABLET UNDER THE TONGUE NEEDED FOR CHEST PAIN, MAY REPEAT EVERY FIVE MINUTES FOR A TOTAL OF 3 DOSES OR CALL 911 IF NO RELIEF Tgt Aspirin (Aspirin) 81 Mg Chw 81 Mg PO DAILY 30 Days Atorvastatin (Atorvastatin Calcium) 80 Mg Tab 80 Mg PO HS 30 Days Plavix (Clopidogrel Bisulfate) 75 Mg Tab 75 Mg PO DAILY 30 Days Active Ordered Medications Current Medications Medications (Trade) Dose Ordered Sig/Charlie Route Start Time Stop Time Status Last Admin Sodium Chloride 1,000 ml @ 100 mls/hr Q10H IV 02/09/18 19:20 02/10/18 09:06 (NS Flush) 2 ml UNSCH PRN IV FLUSH 02/09/18 19:30 (NS Flush) 2 ml BID IV FLUSH 02/09/18 21:00 02/10/18 09:07 (Tylenol) 500 mg Q4H PRN PO 02/09/18 19:30 02/10/18 01:29 (Morphine Inj) 2 mg Q4H PRN IV PUSH 02/09/18 19:30 (Protonix) 40 mg DAILY PO 02/10/18 09:00 02/10/18 09:06 (Nitroglycerin 2% Oint) 1 inch Q6HR TOP 02/10/18 00:00 (Aspirin) 325 mg DAILY PO 02/10/18 09:00 02/10/18 09:06 (Lipitor) 80 mg HS PO 02/10/18 21:00 (Plavix) 75 mg DAILY PO 02/10/18 09:15 (Norvasc) 5 mg DAILY PO 02/10/18 09:15 Family History States that his mother in her 60s of a myocardial infarction. Social History Continues to smoke crack cocaine at least 3 times a week. Continues to smoke 2 cigars a day and has done so for the last 5 years. He had quit smoking cigarettes in 1995. Denies alcohol use. Currently homeless. Physical Exam Vital Signs Vital Signs Date Time Temp Pulse Resp B/P (MAP) Pulse Ox O2 Delivery O2 Flow Rate FiO2 02/10/18 08:53 100 21 02/10/18 07:39 98.4 63 18 145/78 (100) 100 02/10/18 04:53 98.2 61 16 133/76 (95) 99 02/10/18 04:19 56 02/10/18 00:37 98.6 65 16 146/70 (95) 96 02/10/18 00:31 67 02/09/18 21:11 61 02/09/18 20:56 98.0 56 16 150/86 (107) 100 02/09/18 20:02 56 14 165/85 (111) 94 Nasal Cannula 02/09/18 17:15 56 25 175/79 (111) 98 Nasal Cannula 2.00 02/09/18 16:20 63 18 185/97 (126) 99 Nasal Cannula 2.00 02/09/18 16:13 100 Nasal Cannula 2.00 02/09/18 16:02 67 18 212/95 (134) 98 Room Air 02/09/18 15:52 27 99 Room Air 02/09/18 14:48 98.3 68 16 158/77 (104) 100 Physical Exam GENERAL: This is a well-nourished, well-developed patient, in no apparent distress. Patient speaks in clear complete sentences. Patient is pleasant. HEENT: Head is atraumatic and normocephalic. Neck is supple without lymphadenopathy and trachea is midline. No JVD or carotid bruits. CARDIOVASCULAR: Regular rate and rhythm without murmurs, gallops, or rubs. RESPIRATORY: Clear to auscultation. Breath sounds equal bilaterally. No wheezes , rales, or rhonchi. Chest wall is nontender. No use of accessory muscles. GASTROINTESTINAL: Abdomen is nontender, nondistended. Abdomen soft. No obvious pulsatile mass or bruit. No CVA tenderness. Strong femoral pulses bilaterally. Normal bowel sounds in all quadrants. MUSCULOSKELETAL: Patient is moving upper and lower extremities freely. No calf tenderness or edema, no Homans sign. Strong pulses in upper and lower extremities. NEUROLOGICAL: Patient is alert and oriented. Cranial nerves 2-12 are grossly intact. No focal deficits and speech is clear. SKIN: No rash and turgor is normal. Laboratory Laboratory Tests Test 02/09/18 15:36 02/09/18 18:00 02/09/18 19:40 02/09/18 22:08 White Blood Count 5.9 Red Blood Count 3.74 Hemoglobin 10.5 Hematocrit 32.2 Mean Corpuscular Volume 86.0 Mean Corpuscular Hemoglobin 28.1 Mean Corpuscular Hemoglobin Concent 32.7 Red Cell Distribution Width 23.3 Platelet Count 210 Mean Platelet Volume 8.5 Neutrophils (%) (Auto) 52.7 Lymphocytes (%) (Auto) 32.4 Monocytes (%) (Auto) 11.2 Eosinophils (%) (Auto) 3.4 Basophils (%) (Auto) 0.3 Neutrophils # (Auto) 3.1 Lymphocytes # (Auto) 1.9 Monocytes # (Auto) 0.7 Eosinophils # (Auto) 0.2 Basophils # (Auto) 0.0 CBC Comment DIFF FINAL Differential Comment Prothrombin Time 10.6 Prothromb Time International Ratio 1.0 Blood Urea Nitrogen 13 Creatinine 1.16 Random Glucose 76 Total Protein 7.4 Albumin 3.8 Calcium Level 8.8 Magnesium Level 2.2 Alkaline Phosphatase 80 Aspartate Amino Transf (AST/SGOT) 12 Alanine Aminotransferase (ALT/SGPT) 14 Total Bilirubin 0.1 Direct Bilirubin LESS THAN 0.1 Sodium Level 142 Potassium Level 4.0 Chloride Level 107 Carbon Dioxide Level 25.8 Anion Gap 9 Estimat Glomerular Filtration Rate 79 Indirect Bilirubin 0.0 Total Creatine Kinase 143 123 121 Creatine Kinase MB 1.1 1.1 1.2 Troponin I LESS THAN 0.02 0.02 LESS THAN 0.02 Lipase 188 Urine Opiates Screen NEG Urine Barbiturates Screen NEG Urine Amphetamines Screen NEG Urine Benzodiazepines Screen NEG Urine Cocaine Screen POS Urine Cannabinoids Screen NEG Result Diagram: 02/09/18 1536 02/09/18 1536 Imaging Last 48 hours Impressions Chest X-Ray 02/09/18 1449 Signed Impressions: CONCLUSION: Negative examination. Course EKGs are sinus rhythm sinus bradycardia nonspecific ST-T changes.These were reviewed with Dr Goff. Tonya VTE Risk Assessment [place] VTE Risk Assessment: No/Low Risk (score <= 1) Caprini Risk Assessment Model Point Value = 1 Point Value = 2 Point Value = 3 Point Value = 5 Age 41-60 Minor surgery BMI > 25 kg/m2 Swollen legs Varicose veins or History of unexplained or recurrent spontaneous Oral contraceptives or hormone replacement Sepsis (< 1 month) Serious lung disease, including pneumonia (< 1 month) Abnormal pulmonary function Acute myocardial infarction Congestive heart failure (< 1 month) History of inflammatory bowel disease Medical patient at bed rest Age 61-74 Arthroscopic surgery Major open surgery (> 45 min) Laparoscopic surgery (> 45 min) Malignancy Confined to bed (> 72 hours) Immobilizing plaster cast Central venous access Age >= 75 History of VTE Family history of VTE Factor V Leiden Prothrombin [id number] Lupus anticoagulant Anticardiolipin antibodies Elevated serum homocysteine Heparin-induced thrombocytopenia Other congenital or acquired thrombophilia Stroke (< 1 month) Elective arthroplasty Hip, pelvis, or leg fracture Acute spinal cord injury (< 1 month) Prophylaxis Regimen Total Risk Factor Score Risk Level Prophylaxis Regimen 0-1 Low Early ambulation 2 Moderate Order ONE of the following: *Sequential Compression Device (SCD) *Heparin 5000 units SQ BID 3-4 Higher Order ONE of the following medications: *Heparin 5000 units SQ TID *Enoxaparin/Lovenox 40 mg SQ daily (WT < 150 kg, CrCl > 30 mL/min) *Enoxaparin/Lovenox 30 mg SQ daily (WT < 150 kg, CrCl > 10-29 mL/min) *Enoxaparin/Lovenox 30 mg SQ BID (WT < 150 kg, CrCl > 30 mL/min) AND/OR *Sequential Compression Device (SCD) 5 or more Highest Order ONE of the following medications: *Heparin 5000 units SQ TID (Preferred with Epidurals) *Enoxaparin/Lovenox 40 mg SQ daily (WT < 150 kg, CrCl > 30 mL/min) *Enoxaparin/Lovenox 30 mg SQ daily (WT < 150 kg, CrCl > 10-29 mL/min) *Enoxaparin/Lovenox 30 mg SQ BID (WT < 150 kg, CrCl > 30 mL/min) AND *Sequential Compression Device (SCD) Assessment and Plan Assessment and Plan * Chest pain: Patient has had serial cardiac enzymes and EKGs for ruling out purposes. He has been seen by Dr. Goff of cardiology in the chest pain center. Discussed medications with Dr. Goff. Amlodipine will replace lisinopril that the patient ran out of quite some time ago. Will not renew Plavix. He has a bare-metal stent and has been off medication for essentially 6 months at this time. He will continue aspirin therapy. * CAD: This will be reassessed with stress testing. Start amlodipine. Continue aspirin. He should also be on statin therapy. This will need to be managed on outpatient basis of LFTs and lipid panel may be followed. * Hypertension: Ranade lisinopril approximately 6 months ago. Will replace with amlodipine. * Cocaine abuse: Patient has been counseled extensively about the importance of no longer using cocaine. * Tobacco abuse: Patient has been counseled on the importance of smoking cessation. Patient is stable at this time. He is agreeable to this plan. David Farfan Feb 10, 2018 09:47
[2018-02-10] MEDS ORDERED: REGADENOSON INJ 0.4 MG/5 ML SYR ONE (11:36)
--- NOTE | 2018-02-10 13:34 | RADRPT ---
EXAM DATE: 02/10/2018 1:17 PM EDT AGE/SEX: 57 years / Male INDICATIONS:Angina. Myocardial infarction Midsternal chest pain radiating to both arms with diaphores is and dizziness. CLINICAL DATA: This is the patient's initial encounter. Patient reports that signs and symptoms have been present for 1 day and indicates a pain score of 5/10. MEDICAL/SURGICAL HISTORY: Hypercholesterolemia. Hypertension. Sickle Cell disease. Smoker. Coronary artery stent. COMPARISON: No prior exams available for comparison. DOSE: 8.8 mCi Tc 99m Myoview at rest 27.3 mCi [id number] at stress 0.4 mg Lexiscan STRESS SYMPTOMS: Weird feeling. EJECTION FRACTION: 46 % TECHNIQUE: The patient underwent pharmacologic stress with infusion of prescribed dose. Continuous ECG tracing was monitored during stress. Gated SPECT imaging was performed after stress and conventi onal SPECT imaging was performed at rest. The examination was performed on a SPECT/CT scanner, both attenuation and non-corrected datasets were reviewed. FINDINGS: Distribution: The maximum perfused segment at stress is in the anterolateral wall. Perfusion Study: The pattern of perfusion at stress demonstrates a fixed defect in the inferolatera l wall and low anteroapical wall without any significant ischemia. Gated Study: There are intact wall motion and wall thickening without hypokinetic or dyskinetic segm ents. The ejection fraction is calculated at 46%. RISK CATEGORY: Low (<1% Annual Motality Rate) CONCLUSION: 1. No significant ischemia. Electronically signed by: Kat Castro MD 02/10/2018 1:33 PM EDT
--- NOTE | 2018-02-10 13:52 | HHI.DCPOC ---
Discharge Care Plan Diagnosis: (1) Chest pain (2) CAD (coronary artery disease) (3) H/O heart artery stent (4) Hypertension (5) Hyperlipidemia (6) Tobacco abuse (7) Cocaine abuse Goals to Promote Your Health * To prevent worsening of your condition and complications * To maintain your health at the optimal level Directions to Meet Your Goals Take your medications as prescribed Follow your dietary instruction Follow activity as directed Keep your appointments as scheduled Take your immunizations and boosters as scheduled If your symptoms worsen call your PCP, if no PCP go to Urgent Care Center or Emergency Room Smoking is Dangerous to Your Health. Avoid second hand smoke Call the 24-hour hour crisis hotline for domestic abuse at David Farfan Feb 10, 2018 13:52
--- NOTE | 2018-02-10 14:27 | EKG ---
Date Performed: 02/09/2018 Time Performed: 21:55:15 PTAGE: 57 years EKG: SINUS BRADYCARDIA ST ELEVATION, PROBABLY EARLY REPOLARIZATION NONSPECIFIC T-WAVE ABNORMALIT Y BORDERLINE ECG ST CHANGES COMPARED TO DISTANT PREVIOUS BUT UNCHANGED FORM RECENT. PREVIOUS TRACING : 02/09/2018 19.53 DOCTOR: Elvin Goff Interpretating Date/Time 02/10/2018 14:26:07
--- NOTE | 2018-02-10 14:29 | EKG ---
Date Performed: 02/09/2018 Time Performed: 19:53:54 PTAGE: 57 years EKG: SINUS BRADYCARDIA ST ELEVATION, PROBABLY EARLY REPOLARIZATION NONSPECIFIC T-WAVE ABNORMALIT Y BORDERLINE ECG NO SIG CHANGE PREVIOUS TRACING : 02/09/2018 15.26 DOCTOR: Elvin Goff Interpretating Date/Time 02/10/2018 14:28:00
--- NOTE | 2018-02-10 14:30 | EKG ---
Date Performed: 02/09/2018 Time Performed: 15:26:34 PTAGE: 57 years EKG: Sinus rhythm POSSIBLE LEFT ATRIAL ENLARGEMENT POSSIBLE RIGHT VENTRICULAR CONDUCTION DELAY ST ELEVATION, PROBABLY EARLY REPOLARIZATION NONSPECIFIC T-WAVE ABNORMALITY BORDERLINE ECG NON SPECIFIC CHANGE CLINICAL CORRE LATION NEEDED PREVIOUS TRACING : 07/31/2017 20.29 DOCTOR: Elvin Goff Interpretating Date/Time 02/10/2018 14:29:27
--- NOTE | 2018-02-10 14:33 | TR ---
Date Performed: 02/10/2018 Time Performed: 11:47:41 DOCTOR: Elvin Goff DRUG LIST: CLINICAL HISTORY: REASON FOR TEST: REASON FOR ENDING: OBSERVATION: CONCLUSION: Lexiscan stress test was performed under standard four minute protocol. Radionuclide was injected one minute prior to ending the test. No electrocardiographic abormalities were present to suggest ischemia. Nuclear imaging and interpretation are pending. COMMENTS: SUBSEQUENT REPORT NEGATIVE FOR ISCHEMIA
[2018-02-10] MEDS ORDERED: ATORVASTATIN 80 MG TAB PO SCH (21:00)
[2018-02-11] MEDS ORDERED: ASPIRIN 81 MG CHEW TAB PO SCH (09:00)
== END 2018-02-10 15:45 | disposition home or self-care (01) ==
LOC: NEPC 14:35 → NEDA 16:58 → NEPFCDU 20:33
PROVIDERS: ADMIT Internal Medicine Interventional Cardiology; ATTEND Internal Medicine Interventional Cardiology
DX: R07.9 Chest pain, unspecified (principal); I25.10 Atherosclerotic heart disease of native coronary artery without angina pectoris; Z95.5 Presence of coronary angioplasty implant and graft; I10 Essential (primary) hypertension; E78.5 Hyperlipidemia, unspecified; F17.210 Nicotine dependence, cigarettes, uncomplicated; F14.10 Cocaine abuse, uncomplicated; I25.2 Old myocardial infarction; R06.02 Shortness of breath; Z91.14 Patient's other noncompliance with medication regimen; E78.00 Pure hypercholesterolemia, unspecified; D57.1 Sickle-cell disease without crisis; Z59.0 Homelessness; Z79.82 Long term (current) use of aspirin; R94.31 Abnormal electrocardiogram [ECG] [EKG]; Z79.899 Other long term (current) drug therapy; Z79.01 Long term (current) use of anticoagulants
CPT/HCPCS: 71046; 78452; 80048; 80076; 80307; 82550; 82552; 83690; 83735; 84484; 85025; 85610; 93005; 93017; 96361; 96374; 99285; A9502; G0378; J2270; J2785; J7030